=== PATIENT | male | born 1970 | race Caucasian/White ===

== ENCOUNTER 2017-03-05 18:25 | Inpatient (IN) | payer MEDICAID ==
[2017-03-05] MEDS ORDERED: IPRATROPIUM/ALBUTEROL 3 ML DEYVIAL ONE ×2 (18:52→18:53)
[2017-03-05 19:18] LABS: ALANINE AMINOTRANSFERASE 44 IU/L (21-72); ALBUMIN 3.6 g/dL (3.5-5.0); ALKALINE PHOSPHATASE 51 IU/L (38-126); ANION GAP 9 mEq/L (8-16); ASPARTATE AMINOTRANSFERASE 25 IU/L (17-59); BILIRUBIN,TOTAL 0.5 mg/dL (0.1-1.4); BILIRUBIN-CONJUGATED 0.3 mg/dL (0.0-0.5); BILIRUBIN-UNCONJUGATED 0.2 mg/dL (0.0-1.1); CALCIUM 9.1 mg/dL (8.5-10.4); CARBON DIOXIDE 36 mEq/l (22-31); CHLORIDE 97 mEq/L (97-110); CREATININE 0.9 mg/dL (0.7-1.3); GLOMERULAR FILTRATION RATE > 60; GLUCOSE 122 mg/dL (70-100); POTASSIUM 3.7 mEq/L (3.5-5.2); SODIUM 142 mEq/L (134-144); TOTAL PROTEIN 7.3 g/dL (6.3-8.2)
[2017-03-05 19:23] LABS: ADD DIFF? YES; ADD MORPH? NO; ADD SCAN? NO; ATYPICAL LYMPHOCYTE FLAG 10 (0-99); FRAGMENT RBC FLAG 0 (0-99); HEMATOCRIT 49.5 % (40.0-51.0); LEFT SHIFT FLG 30 (0-99); LIPEMIA HEMOLYSIS FLAG 80 (0-99); MEAN CELL HEMOGLOBIN 27.4 pg (27.9-34.1); MEAN CELL HEMOGLOBIN CONCENTR. 30.3 g/dL (32.4-36.7); MEAN CELL VOLUME 90.3 fL (81.5-99.8); MEAN PLATELET VOLUME 9.3 fL (8.7-11.7); PLATELET CLUMPS FLAG 0 (0-99); PLATELET COUNT 336 10^3/uL (150-400); RED BLOOD CELL COUNT 5.48 10^6/uL (4.40-6.38); RED CELL DISTRIBUTION WIDTH 15.1 % (11.5-15.2)
--- NOTE | 2017-03-05 19:28 | EDPHY ---
H & P Stated Complaint: pe/pna left hospital ama yesterday/didn't get home o2 or coumadin Time Seen by Provider: 03/05/17 18:45 HPI/ROS: Chief Complaint: Shortness of breath HPI: 46-year-old male who left his [facility] ([place], [place]) yesterday morning against medical advice for treatment for a possible PE versus pneumonia. Patient is normally on home oxygen and BiPAP. Patient has not had either of those since his discharge has had increasing shortness of breath since he left the hospital. He denies any fevers or chills but has had a lot of sweating. No chest pain. Has a history of a PE in the past was admitted for 2 months in 2016. Patient is also not been taking his anticoagulation. He went to get his Xarelto filled today but could not afford it. He is also not been using his home inhalers as he has not had these either. He states he with the hospital because he was concerned that they are not finding his per problem fast enough. Was supposed to have a CT scan there but was unable to lie flat. ROS: 10 point Review of Systems is negative except as noted in the HPI. PMH: PE, COPD, CHF, morbid obesity, benign prostate hypertrophy, hypothyroidism , HTN Medications: Combivent, carvedilol, melatonin, hydrochlorothiazide, levothyroxine, tamsulosin, amlodipine, albuterol Social History: No smoking, no alcohol, no recreational drug use Family History: non-contributory Physical Exam: Gen: Awake, Alert, moderate distress, morbidly obese HEENT: Nose: no rhinorrhea Eyes: PERRLA, EOMI Mouth: Moist mucosa Neck: Supple, no JVD Chest: nontender, very distant breath sounds with no focal rales or rhonchi appreciated Heart: S1, S2 normal, no murmur Abd: Soft, non-tender, no guarding Back: no CVA tenderness, no midline tenderness Ext: no edema, non-tender Skin: no rash Neuro: CN II-XII intact, Sensation grossly intact, Strength 5/5 in bilateral upper and lower extremities - Personal History Current Tetanus/Diphtheria Vaccine: Yes Tetanus Vaccine Date: april 2013 - Medical/Surgical History Hx Asthma: Yes Hx Chronic Respiratory Disease: Yes Hx Diabetes: No Hx Cardiac Disease: Yes Hx Renal Disease: No Hx Cirrhosis: No Hx Alcoholism: No Hx HIV/AIDS: No Hx Splenectomy or Spleen Trauma: No Other PMH: htn. hypothyroid. copd. cpap with o2 at night. Obesity - Social History Smoking Status: Never smoked Constitutional: Initial Vital Signs Temperature (C) 36.7 C 03/05/17 18:30 Heart Rate 113 H 03/05/17 18:30 Respiratory Rate 28 H 03/05/17 18:30 Blood Pressure 169/119 H 03/05/17 18:30 O2 Sat (%) 84 L 03/05/17 18:30 O2 Delivery Mode Oxymizer O2 (L/minute) 10 Allergies/Adverse Reactions: Penicillins Allergy (Verified 03/05/17 18:29) sulfamethoxazole Allergy (Verified 03/05/17 18:29) trimethoprim Allergy (Verified 03/05/17 18:29) Home Medications: Medication Instructions Recorded Gabapentin [Neurontin] 1,200 mg PO BID 09/01/13 Aspirin [Aspirin 325 mg (*)] 325 mg PO DAILY 04/09/16 Aspirin [Aspirin 325 mg (*)] 650 mg PO DAILY PRN 04/09/16 traMADol [Ultram 50 mg (*)] 100 mg PO Q6 PRN 04/09/16 Acetaminophen [Tylenol 325mg (*)] 650 mg PO Q4 PRN #0 tab 04/17/16 Albuterol [Proventil Inhaler HFA 2 puffs IH Q4 PRN #1 mdi 04/17/16 (*)] Beclomethasone Qvar 80 [Qvar 80 1 puffs IH BIDI #1 mdi 04/17/16 (*)] Ipratropium/Albuterol [Combivent 1 inh IH QID #1 mdi MDD 6 PUFFS 04/17/16 Respimat Inhal Gibbon(*)] DAILY Levothyroxine [Synthroid 125 mcg 125 mcg PO DAILY06 #10 tab 04/17/16 (*)] amLODIPine BESYLATE [Norvasc] 5 mg PO DAILY #30 tab 04/17/16 Coumadin 03/05/17 Medical Decision Making - Diagnostics EKG Interpretation: ECG time 6:55 p.m. sinus tachycardia with a rate of 100 normal axis, poor R- wave progression. No acute ST or T-wave changes. No significant change compared to an ECG from 04/11/2016 Imaging Results: Imaging Impressions Chest X-Ray 03/05/17 18:54 Impression: Findings most consistent with congestive heart failure are noted with associated basilar atelectasis. Imaging: I viewed and interpreted images myself ED Course/Re-evaluation: Checks x-ray does not show any gross large pneumonia. Consistent findings are consistent with CHF. Patient has very distant breath sounds has been improved with a continuous neb. Blood counts are pending. ECG is nonacute. I have discussed with Dr. Hans Angulo, hospitalist. He will admit to his service for further care. Patient's oxygen is in the 90s on face mask. He is tolerating a neb treatment EN is feeling better with improved air movement. - Data Points Laboratory Results: Laboratory Results 03/05/17 18:58 03/05/17 18:58 03/05/17 03/05/17 03/05/17 18:58 18:58 18:58 WBC 12.20 10^3/uL H 10^3/uL (3.80-9.50) RBC 5.48 10^6/uL 10^6/uL (4.40-6.38) Hgb 15.0 g/dL g/dL (13.7-17.5) Hct 49.5 % % (40.0-51.0) MCV 90.3 fL fL (81.5-99.8) MCH 27.4 pg L pg (27.9-34.1) MCHC 30.3 g/dL L g/dL (32.4-36.7) RDW 15.1 % % (11.5-15.2) Plt Count 336 10^3/uL 10^3/uL (150-400) MPV 9.3 fL fL (8.7-11.7) Neut % (Auto) Not Reported Lymph % (Auto) Not Reported [place] % (Auto) Not Reported Eos % (Auto) Not Reported Baso % (Auto) Not Reported Nucleat RBC Rel Count 0.0 % % (0.0-0.2) Absolute Neuts (auto) Not Reported Absolute Lymphs (auto) Not Reported Absolute Monos (auto) Not Reported Absolute Eos (auto) Not Reported Absolute Basos (auto) Not Reported Absolute Nucleated RBC 0.00 10^3/uL 10^3/uL (0-0.01) Immature Gran % Not Reported Immature Gran # Not Reported Platelet Estimate Pending Sodium 142 mEq/L mEq/L (134-144) Potassium 3.7 mEq/L mEq/L (3.5-5.2) Chloride 97 mEq/L mEq/L (97-110) Carbon Dioxide 36 mEq/l H mEq/l (22-31) Anion Gap 9 mEq/L mEq/L (8-16) BUN 28 mg/dL H mg/dL (7-23) Creatinine 0.9 mg/dL mg/dL (0.7-1.3) Estimated GFR > 60 Glucose 122 mg/dL H mg/dL (70-100) Calcium 9.1 mg/dL mg/dL (8.5-10.4) Total Bilirubin 0.5 mg/dL mg/dL (0.1-1.4) Conjugated Bilirubin 0.3 mg/dL mg/dL (0.0-0.5) Unconjugated Bilirubin 0.2 mg/dL mg/dL (0.0-1.1) AST 25 IU/L IU/L (17-59) ALT 44 IU/L IU/L (21-72) Alkaline Phosphatase 51 IU/L IU/L (38-126) Troponin I < 0.012 ng/mL ng/mL (0-0.034) NT-Pro-B Natriuret Pep 459 pg/mL H pg/mL (0-125) Total Protein 7.3 g/dL g/dL (6.3-8.2) Albumin 3.6 g/dL g/dL (3.5-5.0) Lipase 140.0 IU/L IU/L (23-300) Departure - Departure Disposition: [facility] Inpatient Acute Clinical Impression: Chronic obstructive pulmonary disease with acute exacerbation, CHF (congestive heart failure) Condition: Serious Referrals: Ivanna Wray PA [Primary Care Provider] - As per Instructions
[2017-03-05 19:29] LABS: TROPONIN I < 0.012 ng/mL (0-0.034)
--- NOTE | 2017-03-05 20:02 | CPEKG ---
Heart Rate: 100 RR Interval: 600 P-R Interval: 176 QRSD Interval: 74 QT Interval: 328 QTC Interval: 423 P [place]: 47 QRS [place]: 73 T Wave [place]: 43 EKG Severity - ABNORMAL ECG - EKG Impression: SINUS TACHYCARDIA EKG Impression: ABNRM R PROG, CONSIDER ASMI OR LEAD PLACEMENT EKG Impression: BORDERLINE T ABNORMALITIES, ANTERIOR LEADS Electronically Signed By: Harris Aguero 07-Mar-2017 10:18:15
[2017-03-05 20:12] LABS: PLATELET ESTIMATE ADEQUATE (ADEQ)
[2017-03-05] MEDS ORDERED: FUROSEMIDE 40 MG/4 ML VIAL IVP ONE (20:55)
[2017-03-05] MEDS ORDERED: ALBUTEROL 3 ML DEYVIAL IH PRN (20:57)
[2017-03-05] MEDS ORDERED: ACETAMINOPHEN 325 MG TAB PO PRN (20:57)
[2017-03-05] MEDS ORDERED: ONDANSETRON DISINTEGRATING 4 MG TAB PO PRN (20:57)
[2017-03-05] MEDS ORDERED: WARFARIN SODIUM 5 MG TAB PO SCH (21:00)
[2017-03-05 21:05] LABS: INR 1.06 (0.83-1.16); PROTIME(PATIENT) 13.7 SEC (12.0-15.0)
--- NOTE | 2017-03-05 21:51 | GHP ---
[f rep st] HISTORY AND PHYSICAL DATE OF ADMISSION: 03/05/2017 The patient is a pleasant 46-year-old gentleman with a history morbid obesity, pulmonary embolism, o besity hypoventilation syndrome and medical noncompliance secondary to homelessness, who presents wi th increasing dyspnea. It sounds like the patient was admitted recently to [facility] where he is being evaluated for pneumonia versus pulmonary embolism. He was discharged on Xa relto. He left against medical advice. He was given a prescription for Xarelto, which he could not fill, and he presents today with increasing breathlessness. He has not had a cough. He has noted lower extremity edema. He has lost weight over time. His last oxygen therapy was in August, as he has been largely homeless since. It sounds like his frequent hospitalizations have led to loss of jobs and homes and marriage. He has not had hemoptysis. He has not had fever or chills, has not had chest pain. When I see him, the patient is restless, but otherwise able to speak in sentences. He is wearing a BiPAP mask that he is able to take off. He has not had urinary urgency, frequency, dysuria. REVIEW OF SYSTEMS: Complete 10-point review of systems conducted, negative except as noted in the H PI. PAST MEDICAL HISTORY: 1. Morbid obesity. 2. Obesity hypoventilation syndrome with baseline bicarb of about 36. 3. History of pulmonary embolism with "coma at an outside hospital.". 4. History of renal failure requiring dialysis during a previous hospital stay here. Etiology of t his renal failure is not entirely clear. 5. Pulmonary hypertension with echo. Pulmonary pressure 53 on an echocardiogram here. 6. Chronic pain. 7. History of neurologic injury in the setting intubation including right hand, wrist drop, and bic eps injury. 8. COPD. 9. Bipolar. 10. History of appendectomy. ALLERGIES: Penicillin and Bactrim. MEDICATIONS: At home, Tylenol, albuterol, amlodipine, aspirin, QVAR, Coumadin, gabapentin, ipratrop ium, levothyroxine, tramadol. That list may change as it is reconciled. SOCIAL HISTORY: He is . Has smoked in the past, but not currently smoking. Rare alcohol. No street drugs other than some marijuana. FAMILY HISTORY: Reviewed and unremarkable. PHYSICAL EXAM: VITAL SIGNS: Temp 36.7, blood pressure 169/119, pulse 113, breathing 20 times a min inupiat, 84% on room air, 94 on 10 L. GENERAL: Increased work of breathing, plethoric, morbidly obese. HEENT: Sclerae anicteric. Oropharynx clear. Mucous membranes are moist. NECK: Supple without lymphadenopathy or JVD. LUNGS: Show very poor quality exam. HEART: S1, S2. Again, poor quality. ABDOMEN: Obese, soft, nontender, nondistended. LOWER EXTREMITIES: 2+ edema bilaterally. Chroni c venous stasis changes. SKIN: Without rash. NEUROLOGIC: Grossly nonfocal. LABORATORY DATA: White count 12.2, hematocrit 49.5, platelets are 336,000. INR is 1.2. Sodium 142 , potassium 3.7, chloride 97, bicarb 36, BUN 28, creatinine 0.9, glucose 122. LFTs normal. Troponi n less than 0.012. BNP is elevated at 459, prior value was 447. Chest x-ray, interpreted by me, sh ows cardiomegaly with likely left-sided congestive heart failure. EKG, interpreted by me, shows sin us tach 100 with rightward axis, normal intervals. I discussed the case with Dr. Salo Paz. records at this time. ASSESSMENT/PLAN: This is a 46-year-old gentleman with morbid obesity, obesity hypoventilation syndr ome, pulmonary embolism, who presents with breathlessness in the setting of no oxygen therapy. 1. Breathlessness, multifactorial of course, but I think that the predominant cause is likely progr essive hypoxia. Patient is currently on bilevel, which I think is reasonable. He will need supplem ental oxygen for the rest of his life or at least until he has significant weight loss. The patient warrants long-term anticoagulation given what sounds like a serious episode of pulmonary embolism a nd ongoing risk, so I think at this point in time I will further pulmonary embolism workup and begin therapeutic doses of Lovenox and warfarin at 10 mg. Warfarin is not an ideal therapy, but I do not see a source for 1 of the novel anticoagulants. 2. Congestive heart failure. The patient probably has right and left-sided heart failure. At this point in time, I will diurese him. I will give him a dose of Lasix now and start b.i.d. Diamox giv en his metabolic alkalosis. 3. I will check an echocardiogram to evaluate his pulmonary artery pressures. 4. Venous thromboembolism as above. Continue anticoagulation. 5. Metabolic alkalosis. This is secondary to chronic hypoventilation. Will diurese with Diamox. 6. Prophylaxis. He is therapeutically anticoagulated. DISPOSITION: Inpatient status to the PCU. /[id number]/MODL
[2017-03-05] MEDS: ENOXAPARIN 150 MG/ML SYR SC SCH (23:56)
[2017-03-06] MEDS ORDERED: traMADol 50 MG TAB PO PRN ×2 (00:16→11:41)
[2017-03-06] MEDS: acetaZOLAMIDE 500 MG in SYRINGE 0 ML IVP SCH ×3 (00:21→20:10)
[2017-03-06] MEDS: ALPRAZolam 1 MG TAB PO SCH ×2 (00:54→08:02)
[2017-03-06] MEDS: oxyCODONE IR 5 MG TAB PO PRN ×4 (00:54→20:07)
[2017-03-06] MEDS: ENOXAPARIN 150 MG/ML SYR SC SCH (08:02)
[2017-03-06 09:16] LABS: % IMMATURE GRANULYOCYTES 2.5 % (0.0-1.1); ABSOLUTE IMMATURE GRANULOCYTES 0.27 10^3/uL (0.00-0.10); ADD DIFF? NO; ADD MORPH? NO; ADD SCAN? NO; ATYPICAL LYMPHOCYTE FLAG 20 (0-99); FRAGMENT RBC FLAG 0 (0-99); HEMATOCRIT 47.7 % (40.0-51.0); HEMOGLOBIN 14.1 g/dL (13.7-17.5); LEFT SHIFT FLG 20 (0-99); LIPEMIA HEMOLYSIS FLAG 70 (0-99); MEAN CELL HEMOGLOBIN 27.3 pg (27.9-34.1); MEAN CELL HEMOGLOBIN CONCENTR. 29.6 g/dL (32.4-36.7); MEAN CELL VOLUME 92.3 fL (81.5-99.8); MEAN PLATELET VOLUME 9.4 fL (8.7-11.7); PLATELET CLUMPS FLAG 0 (0-99); PLATELET COUNT 272 10^3/uL (150-400); RED BLOOD CELL COUNT 5.17 10^6/uL (4.40-6.38); RED CELL DISTRIBUTION WIDTH 15.5 % (11.5-15.2)
[2017-03-06 09:25] LABS: INR 1.15 (0.83-1.16); PROTIME(PATIENT) 14.6 SEC (12.0-15.0)
[2017-03-06 09:46] LABS: ANION GAP 7 mEq/L (8-16); CALCIUM 8.7 mg/dL (8.5-10.4); CARBON DIOXIDE 37 mEq/l (22-31); CHLORIDE 96 mEq/L (97-110); CREATININE 0.8 mg/dL (0.7-1.3); GLOMERULAR FILTRATION RATE > 60; GLUCOSE 79 mg/dL (70-100); POTASSIUM 3.9 mEq/L (3.5-5.2); SODIUM 140 mEq/L (134-144)
[2017-03-06] MEDS ORDERED: PERFLUTREN LIPID MICROSPHERES 1.1 MG/ML VIAL IV ONE (11:30)
[2017-03-06] MEDS: IPRATROPIUM/ALBUTEROL 4GM MDI IH SCH ×3 (11:57→21:44)
[2017-03-06] MEDS: TAMSULOSIN HCL 0.4 MG CAP PO SCH (12:56)
--- NOTE | 2017-03-06 14:49 | HOSPPROG ---
Hospitalist Progress Note Assessment/Plan: Assessment: 46-year-old male presents with acute on chronic hypoxic respiratory failure in the setting of acute diastolic congestive heart failure exacerbation Plan: 1. Hypoxic respiratory failure. Acute on chronic, evidenced by SpO2 of 84% on room air with respiratory rate of 28 as well as symptomatic shortness of breath and breathlessness, resulting in labored breathing, secondary to acute CHF exacerbation as well as untreated obesity hypoventilation syndrome -continue BiPAP at bedtime, 5-6 L nasal cannula during the day -will most likely require supplemental oxygen at time of discharge -reviewed outside records including his discharge summary from 03/04/2017 from [facility], reporting that the patient decided to leave AMA and reported that he would use a tank of oxygen and BiPAP machine which a friend has , patient has since reported he has no access to these items as an outpatient 2. Diastolic congestive heart failure exacerbation. Acute, evidenced by BNP of 460, pulmonary edema on chest x-ray, history of diastolic dysfunction on echocardiogram from 2016, most likely untreated as an outpatient and exacerbated by untreated hypertension -status post IV Lasix on presentation, continue with IV Diamox given his metabolic alkalosis -continue to monitor strict I&Os, daily weights 3. History of pulmonary embolism. Review of outside records confirm that the patient had a pulmonary embolism in August or September of 2016, was placed on Coumadin thereafter, had challenges with adherence, was placed on Xarelto as most recent hospitalization at [facility] -patient has been nonadherent to Xarelto secondary to poor medication education -will continue Xarelto at this time and work on prior authorization -patient recently had lower extremity ultrasounds which demonstrated no evidence of active DVT 4. Obesity hypoventilation syndrome. Chronic, resulting in chronic hypercapnia , requires BiPAP at night 5. Morbid obesity. BMI 51, increase patient's risk of morbidity and mortality, patient was counseled regarding weight loss today and was advised that bariatric surgery would be an option if he is able to demonstrate adherence in the outpatient setting 6. Atelectasis. Secondary to compression from CHF, add incentive spirometer Diet. Regular Prophylaxis. High risk patient, currently on Xarelto Code. Full Disposition. Anticipated discharge is uncertain this time, patient remains hypervolemic requiring IV diuretics. Subjective: Patient was extensively counseled regarding the indications for bariatric surgery, the need for outpatient adherence, his oral anticoagulation options Objective: Vital Signs Temp Pulse Resp BP Pulse Ox 36.4 C 104 H 22 H 157/102 H 93 03/06/17 14:00 03/06/17 14:00 03/06/17 14:00 03/06/17 14:00 03/06/17 14:00 Laboratory Results 03/06/17 08:34 03/06/17 08:34 03/05/17 03/06/17 03/07/17 05:59 05:59 05:59 Intake Total 800 Output Total 600 1650 Balance 200 -1650 PT 14.6 SEC (12.0-15.0) 03/06/17 08:34 INR 1.15 (0.83-1.16) 03/06/17 08:34 - Time Spent With Patient Time Spent with Patient: greater than 35 minutes Time Spent with Patient: Greater than 35 minutes spent on this patients care, greater than 50% of time spent counseling, educating, and coordinating care regarding the above mentioned plan. - Physical Exam Constitutional: not in pain, chronically ill appearing, obese, No uncomfortable Cardiovascular: regular rate and rhythym, systolic murmur (206 sternal), edema ( 1+ bilateral lower extremity), No tachycardia Respiratory: inspiratory crackles (Bilateral bases), No expiratory wheeze, No bronchial breath sounds Gastrointestinal: normoactive bowel sounds, soft, non-tender abdomen, no palpable masses Neurologic: AAOx3 Psychiatric: interacting appropriately, not anxious, not encephalopathic, thought process linear ICD10 Worksheet Patient Problems: Problems Problem Status Onset CHF (congestive heart failure) Acute Chronic obstructive pulmonary disease with acute exacerbation Acute Chronic obstructive pulmonary disease with acute exacerbation Acute Palliative care encounter Acute Polycythemia Acute Right-sided heart failure Acute
[2017-03-06] MEDS ORDERED: NON-FORMULARY NEW DRUG (Gabapentin [Neurontin] 1,200 MG) PO SCH (16:00)
[2017-03-06] MEDS: GABAPENTIN 400 MG CAP PO SCH ×2 (16:10→20:08)
[2017-03-06] MEDS: RIVAROXABAN 15 MG TAB PO SCH (17:53)
[2017-03-06] MEDS: CARVEDILOL 6.25 MG TAB PO SCH (17:53)
[2017-03-06] MEDS: ALPRAZolam 1 MG TAB PO PRN (20:07)
[2017-03-07] MEDS: oxyCODONE IR 5 MG TAB PO PRN ×2 (03:37→15:25)
[2017-03-07] MEDS: IPRATROPIUM/ALBUTEROL 4GM MDI IH SCH ×2 (06:03→10:52)
[2017-03-07] MEDS: CARVEDILOL 6.25 MG TAB PO SCH ×2 (07:22→17:35)
[2017-03-07] MEDS: RIVAROXABAN 15 MG TAB PO SCH ×2 (07:24→17:35)
[2017-03-07] MEDS: LEVOTHYROXINE 125 MCG TAB PO SCH (07:24)
[2017-03-07 07:47] LABS: % IMMATURE GRANULYOCYTES 1.4 % (0.0-1.1); ABSOLUTE IMMATURE GRANULOCYTES 0.17 10^3/uL (0.00-0.10); ADD DIFF? NO; ADD MORPH? YES; ADD SCAN? NO; ATYPICAL LYMPHOCYTE FLAG 0 (0-99); FRAGMENT RBC FLAG 0 (0-99); HEMATOCRIT 50.3 % (40.0-51.0); HEMOGLOBIN 14.5 g/dL (13.7-17.5); LEFT SHIFT FLG 10 (0-99); LIPEMIA HEMOLYSIS FLAG 70 (0-99); MEAN CELL HEMOGLOBIN 26.8 pg (27.9-34.1); MEAN CELL VOLUME 92.8 fL (81.5-99.8); PLATELET CLUMPS FLAG 0 (0-99); PLATELET COUNT 268 10^3/uL (150-400); RED BLOOD CELL COUNT 5.42 10^6/uL (4.40-6.38); RED CELL DISTRIBUTION WIDTH 15.3 % (11.5-15.2)
[2017-03-07 07:49] LABS: MEAN CELL HEMOGLOBIN CONCENTR. 28.8 g/dL (32.4-36.7)
[2017-03-07 07:58] LABS: INR 1.44 (0.83-1.16); PROTIME(PATIENT) 17.5 SEC (12.0-15.0)
[2017-03-07 08:11] LABS: ANION GAP 5 mEq/L (8-16); CALCIUM 9.2 mg/dL (8.5-10.4); CARBON DIOXIDE 36 mEq/l (22-31); CHLORIDE 96 mEq/L (97-110); CREATININE 0.8 mg/dL (0.7-1.3); GLOMERULAR FILTRATION RATE > 60; GLUCOSE 84 mg/dL (70-100); SODIUM 137 mEq/L (134-144)
[2017-03-07 09:01] LABS: HYPOCHROMIA 1+; PLATELET ESTIMATE ADEQUATE (ADEQ); STOMATOCYTES 1+
[2017-03-07] MEDS: ONDANSETRON 4 MG/2 ML VIAL IVP PRN ×2 (09:03→17:36)
[2017-03-07] MEDS: acetaZOLAMIDE 500 MG in SYRINGE 0 ML IVP SCH ×2 (09:13→20:46)
[2017-03-07] MEDS: TAMSULOSIN HCL 0.4 MG CAP PO SCH (09:54)
[2017-03-07] MEDS: GABAPENTIN 400 MG CAP PO SCH ×3 (09:54→20:40)
[2017-03-07 10:51] LABS: BASE EXCESS 3.3 mEq/L (-2.5-2.5); BICARBONATE 36 mEq/L (22-26); MEASURED OXYGEN SATURATION 89 % (92-95); PO2 65 mmHg (65-75); TCO2 39 mEq/L (23-27)
[2017-03-07 10:53] LABS: PCO2 100 mmHg (34-38)
[2017-03-07] MEDS: IPRATROPIUM/ALBUTEROL 3 ML DEYVIAL IH SCH ×3 (11:13→22:45)
[2017-03-07] MEDS: methylPREDNISolone SOD SUCC 40 MG/ML VIAL IVP SCH ×3 (11:34→20:40)
[2017-03-07 14:51] LABS: CALCULATED OXYGEN SATURATION 92 % (92-95)
--- NOTE | 2017-03-07 15:25 | HOSPPROG ---
Hospitalist Progress Note Assessment/Plan: Assessment: 46-year-old male presents with acute on chronic hypoxic and hypercapnic respiratory failure in the setting of acute diastolic congestive heart failure exacerbation Plan: 1. Hypoxic and hypercapnic respiratory failure. Acute worsening this AM, new prob, further w/u, w/ somnolence, pCO2 100 w/ pH 7.1, likely 2/2 poor fitting BiPAP o/n, poor lung exam and unable to ascertain whether there are obstructive breath sounds -continue BiPAP -start methylpred 80 q8, duonebs -repeat ABG this afternoon and tomorrow AM 2. Diastolic congestive heart failure exacerbation. Acute, most likely untreated as an outpatient and exacerbated by untreated hypertension -CXR w/ interstitial edema (personally interpreted) -continue with IV Diamox given his metabolic alkalosis -net neg 1.4L o/n 3. History of pulmonary embolism. Review of outside records confirm that the patient had a pulmonary embolism in August or September of 2016, was placed on Coumadin thereafter, had challenges with adherence, was placed on Xarelto as most recent hospitalization at [facility] -patient has been nonadherent to Xarelto secondary to poor medication education -will continue Xarelto at this time and work on prior authorization -patient recently had lower extremity ultrasounds which demonstrated no evidence of active DVT 4. Obesity hypoventilation syndrome. Chronic, resulting in chronic hypercapnia , requires BiPAP at night 5. Morbid obesity. BMI 51, increase patient's risk of morbidity and mortality, patient was counseled regarding weight loss today and was advised that bariatric surgery would be an option if he is able to demonstrate adherence in the outpatient setting 6. Atelectasis. Secondary to compression from CHF, added incentive spirometer 7. Acute encephalopathy. Evidenced by global brain dysfunction characterized as somnolence, impaired ability to verbally communicate, reduced level of responsiveness, acute change from day prior, 2/2 metabolic effects of hypercapnia -cont on BiPAP, monitor mental status Diet. Regular Prophylaxis. High risk patient, currently on Xarelto Code. Full Disposition. Anticipated discharge is uncertain this time, patient remains hypervolemic requiring IV diuretics, worsening resp status. High Complexity patient, high risk of morbidity and/or mortality secondary to the issues as outlined above. Subjective: Patient more somnolent this morning, not following commands, did not keep his BiPAP mask on all night Objective: Vital Signs Temp Pulse Resp BP Pulse Ox 36.5 C 80 14 117/66 90 L 03/07/17 04:37 03/07/17 09:05 03/07/17 09:05 03/07/17 09:05 03/07/17 09:05 Laboratory Results 03/07/17 07:32 03/07/17 07:32 03/06/17 03/07/17 03/08/17 05:59 05:59 05:59 Intake Total 800 2900 Output Total 600 4300 1200 Balance 200 -1400 -1200 PT 17.5 SEC (12.0-15.0) H 03/07/17 07:32 INR 1.44 (0.83-1.16) H 03/07/17 07:32 - Physical Exam Constitutional: not in pain, chronically ill appearing, obese, No uncomfortable Cardiovascular: regular rate and rhythym, no murmur, rub, or gallop, edema (1+ bilateral lower extremity), No irregularly irregular Respiratory: other (Poor inspiratory and expiratory effort, unable to appreciate wheezes or crackles, patient is visibly tachypneic), No dullness to percussion Gastrointestinal: normoactive bowel sounds, soft, non-tender abdomen, no palpable masses Neurologic: other (Patient able to follow some 1 step commands but he does not verbally respond to questions, does not voluntarily open his eyes, does not interact further, he does have motor strength in his bilateral hands equally) Psychiatric: not anxious, encephalopathic, poor insight, poor judgement, No agitated ICD10 Worksheet Patient Problems: Problems Problem Status Onset CHF (congestive heart failure) Acute Chronic obstructive pulmonary disease with acute exacerbation Acute Polycythemia Acute Right-sided heart failure Acute Palliative care encounter Acute Chronic obstructive pulmonary disease with acute exacerbation Acute
[2017-03-08] MEDS: ALPRAZolam 1 MG TAB PO PRN (03:12)
[2017-03-08] MEDS: oxyCODONE IR 5 MG TAB PO PRN (03:12)
[2017-03-08] MEDS: IPRATROPIUM/ALBUTEROL 3 ML DEYVIAL IH SCH (06:19)
[2017-03-08 06:36] LABS: BASE EXCESS 0.6 mEq/L (-2.5-2.5); BICARBONATE 37 mEq/L (22-26); MEASURED OXYGEN SATURATION 96 % (92-95); PO2 98 mmHg (65-75)
[2017-03-08 06:41] LABS: BIPAP YES; O2 CONCENTRATIION 60 % (0-100); P/F RATIO 163 RATIO; PCO2 > 125 mmHg (34-38); TCO2 42 mEq/L (23-27)
[2017-03-08 06:42] LABS: EXP PRESSURE 5; INSP PRESSURE 18
[2017-03-08] MEDS: LEVOTHYROXINE 125 MCG TAB PO SCH (06:44)
[2017-03-08] MEDS: methylPREDNISolone SOD SUCC 40 MG/ML VIAL IVP SCH ×3 (06:44→21:20)
[2017-03-08 06:47] LABS: ABSOLUTE IMMATURE GRANULOCYTES 0.29 10^3/uL (0.00-0.10); ADD DIFF? NO; ADD MORPH? YES; ADD SCAN? NO; ATYPICAL LYMPHOCYTE FLAG 0 (0-99); FRAGMENT RBC FLAG 0 (0-99); HEMATOCRIT 50.4 % (40.0-51.0); HEMOGLOBIN 14.3 g/dL (13.7-17.5); LEFT SHIFT FLG 10 (0-99); LIPEMIA HEMOLYSIS FLAG 70 (0-99); MEAN CELL HEMOGLOBIN 27.6 pg (27.9-34.1); MEAN CELL VOLUME 97.1 fL (81.5-99.8); MEAN PLATELET VOLUME 9.2 fL (8.7-11.7); PLATELET CLUMPS FLAG 0 (0-99); PLATELET COUNT 253 10^3/uL (150-400); RED BLOOD CELL COUNT 5.19 10^6/uL (4.40-6.38); RED CELL DISTRIBUTION WIDTH 14.6 % (11.5-15.2)
[2017-03-08 06:51] LABS: INR 1.76 (0.83-1.16); PROTIME(PATIENT) 20.6 SEC (12.0-15.0)
[2017-03-08 06:55] LABS: MEAN CELL HEMOGLOBIN CONCENTR. 28.4 g/dL (32.4-36.7)
[2017-03-08 07:12] LABS: ANION GAP 6 mEq/L (8-16); CALCIUM 9.4 mg/dL (8.5-10.4); CARBON DIOXIDE 33 mEq/l (22-31); CHLORIDE 94 mEq/L (97-110); CREATININE 0.8 mg/dL (0.7-1.3); GLOMERULAR FILTRATION RATE > 60; GLUCOSE 168 mg/dL (70-100); POTASSIUM 5.8 mEq/L (3.5-5.2); SODIUM 133 mEq/L (134-144); SPECIMEN HEMOLYSIS 103
[2017-03-08 07:52] LABS: MACROCYTES 1+; PLATELET ESTIMATE ADEQUATE (ADEQ); POLYCHROMASIA 1+
[2017-03-08] MEDS: PROPOFOL/EMULSION 100 ML IV SCH ×5 (08:00→21:48)
--- NOTE | 2017-03-08 08:12 | HOSPPROG ---
Hospitalist Progress Note Assessment/Plan: CROSS COVERAGE EVENT NOTE RN paged regarding abnormal ABG results, 7.08/>125/98/42/96, on BIPAP of FiO2 at 60%, 18/5. On my assessment, patient was unarousable/obtunded. Given these findings, arrangements were made to transfer the patient to the ICU for emergent intubation. In the meantime, IP/EP were adjusted to 20/5. Newspaper Stuffer was informed of events and is planning for likely intubation. Shannon Gilmore DO Objective: Vital Signs Temp Pulse Resp BP Pulse Ox 36.9 C 104 H 14 131/83 H 94 03/07/17 19:51 03/08/17 06:19 03/08/17 06:19 03/07/17 23:14 03/08/17 06:19 Laboratory Results 03/08/17 06:36 03/08/17 06:36 03/07/17 03/08/17 03/09/17 05:59 05:59 05:59 Intake Total 2900 600 Output Total 4300 4350 Balance -1400 -3750 PT 20.6 SEC (12.0-15.0) H 03/08/17 06:36 INR 1.76 (0.83-1.16) H 03/08/17 06:36 ICD10 Worksheet Patient Problems: Problems Problem Status Onset CHF (congestive heart failure) Acute Chronic obstructive pulmonary disease with acute exacerbation Acute Polycythemia Acute Right-sided heart failure Acute Palliative care encounter Acute Chronic obstructive pulmonary disease with acute exacerbation Acute
[2017-03-08] MEDS ORDERED: PROPOFOL/EMULSION 1,000 MG/100 ML BOTTLE IV ONE (08:15)
[2017-03-08] MEDS: GABAPENTIN 400 MG CAP PO SCH ×3 (09:18→21:19)
[2017-03-08] MEDS: acetaZOLAMIDE 500 MG in SYRINGE 0 ML IVP SCH (09:18)
[2017-03-08] MEDS: medroxyPROGESTERone 10 MG TAB PO SCH ×3 (09:18→21:19)
[2017-03-08] MEDS: CARVEDILOL 6.25 MG TAB PO SCH ×2 (09:18→17:25)
[2017-03-08] MEDS: RIVAROXABAN 15 MG TAB PO SCH (09:19)
[2017-03-08] MEDS: TAMSULOSIN HCL 0.4 MG CAP PO SCH (09:19)
[2017-03-08 09:44] LABS: BASE EXCESS 5.9 mEq/L (-2.5-2.5); BICARBONATE 32 mEq/L (22-26); MEASURED OXYGEN SATURATION 100 % (92-95); PCO2 53 mmHg (34-38); PO2 177 mmHg (65-75); TCO2 34 mEq/L (23-27)
[2017-03-08 09:45] LABS: ASSIST CONTROL YES; END TIDAL CO2 48; O2 CONCENTRATIION 100 % (0-100); P/F RATIO 177 RATIO
[2017-03-08 09:46] LABS: TOTAL RATE 25
[2017-03-08] MEDS: FAMOTIDINE 20 MG/NACL 50 ML IV SCH ×2 (10:21→20:25)
[2017-03-08] MEDS: ENOXAPARIN 150 MG/ML SYR SC SCH ×2 (10:33→20:24)
[2017-03-08 13:04] LABS: ANION GAP 5 mEq/L (8-16); CALCIUM 9.3 mg/dL (8.5-10.4); CARBON DIOXIDE 33 mEq/l (22-31); CHLORIDE 93 mEq/L (97-110); CREATININE 0.9 mg/dL (0.7-1.3); GLOMERULAR FILTRATION RATE > 60; GLUCOSE 110 mg/dL (70-100); POTASSIUM 5.8 mEq/L (3.5-5.2); SODIUM 131 mEq/L (134-144); SPECIMEN HEMOLYSIS 147
[2017-03-08] MEDS: ALBUTEROL 200 PUFFS/18 GM MDI IH SCH ×4 (14:00→23:42)
[2017-03-08] MEDS: CHLORHEXIDINE GLUCONATE 15 ML UDL PO SCH ×2 (14:17→20:24)
--- NOTE | 2017-03-08 14:19 | HOSPPROG ---
Hospitalist Progress Note Assessment/Plan: Assessment: 46-year-old male presents with acute on chronic hypoxic and hypercapnic respiratory failure in the setting of acute diastolic congestive heart failure exacerbation Plan: 1. Hypoxic and hypercapnic respiratory failure. Acute worsening this AM 2/2 BiPAP non-adherence overnight, somnolence, pCO2 >125 w/ pH 7.05 -d/w Dr. Abreu, intubated this AM w/o incident -cont on empiric methylpred 80 q8, duonebs given inability to gauge air movement on lung exam -repeat ABG w/ significant improvement on ventilator, continue vent and serial ABGs to ensure stability 2. Diastolic congestive heart failure exacerbation. Acute, most likely untreated as an outpatient and exacerbated by untreated hypertension -initial CXR w/ interstitial edema and LE edema -continue with IV Diamox given his metabolic alkalosis -net neg 3.7L o/n, neg 2kg LOS 3. History of pulmonary embolism. Patient had a pulmonary embolism in August or September of 2016, was placed on Coumadin thereafter, had challenges with adherence, was placed on Xarelto at most recent hospitalization at [facility], did not receive prior auth for Medicaid so he could not afford -patient has been nonadherent to Xarelto secondary to poor medication education -will continue Xarelto at this time and work on prior authorization (will request prior auth for Medicaid today) -patient recently had lower extremity ultrasounds which demonstrated no evidence of active DVT -while he is on vent, will use lovenox 150 bid 4. Obesity hypoventilation syndrome. Chronic, resulting in chronic hypercapnia , requires BiPAP at night as outpt 5. Morbid obesity. BMI 51, increase patient's risk of morbidity and mortality, patient was counseled regarding weight loss and was advised that bariatric surgery would be an option if he is able to demonstrate adherence in the outpatient setting 6. Atelectasis. Secondary to compression from CHF 7. Acute encephalopathy. Evidenced by global brain dysfunction characterized as somnolence, impaired ability to verbally communicate, reduced level of responsiveness, acute worsening this AM 2/2 metabolic effects of hypercapnia -currently sedated on propofol Diet. Regular Prophylaxis. High risk patient, currently on Xarelto Code. Full Disposition. Anticipated discharge is uncertain this time, patient remains hypervolemic requiring IV diuretics, worsening resp status. 35 minutes of critical care time spent at bedside w/ patient, addressing above, drawing ABG w/ doppler, patient remains critically ill. Subjective: Patient arousable this morning, mental status worsening, did not adhere to his BiPAP over night, was intubated this morning Objective: Vital Signs Temp Pulse Resp BP Pulse Ox 37.2 C 74 15 93/64 L 92 03/08/17 13:00 03/08/17 13:00 03/08/17 13:00 03/08/17 13:00 03/08/17 13:00 Laboratory Results 03/08/17 06:36 03/08/17 12:25 03/07/17 03/08/17 03/09/17 05:59 05:59 05:59 Intake Total 2900 600 Output Total 4300 4350 Balance -1400 -3750 PT 20.6 SEC (12.0-15.0) H 03/08/17 06:36 INR 1.76 (0.83-1.16) H 03/08/17 06:36 - Physical Exam Constitutional: not in pain, chronically ill appearing, obese Eyes: other (Pupils central, fixed, not dilated) Cardiovascular: edema (2+ bilateral lower extremity edema), other (Distant), No systolic murmur, No tachycardia Respiratory: other (Distant breath sounds), No expiratory wheeze, No inspiratory crackles, No bronchial breath sounds Neurologic: other (Intubated and sedated, spontaneously moving upper extremities bilaterally) ICD10 Worksheet Patient Problems: Problems Problem Status Onset CHF (congestive heart failure) Acute Chronic obstructive pulmonary disease with acute exacerbation Acute Polycythemia Acute Right-sided heart failure Acute Palliative care encounter Acute Chronic obstructive pulmonary disease with acute exacerbation Acute
[2017-03-08 14:25] LABS: BASE EXCESS 4.9 mEq/L (-2.5-2.5); BICARBONATE 31 mEq/L (22-26); MEASURED OXYGEN SATURATION 86 % (92-95); PCO2 56 mmHg (34-38); PO2 48 mmHg (65-75); TCO2 33 mEq/L (23-27)
[2017-03-08 14:27] LABS: ASSIST CONTROL YES
[2017-03-08 14:28] LABS: O2 CONCENTRATIION 50 % (0-100); P/F RATIO 96 RATIO
[2017-03-08] MEDS ORDERED: FUROSEMIDE 20 MG/2 ML VIAL IVP ONE (15:02)
[2017-03-08] MEDS ORDERED: ALTEPLASE 2 MG VIAL IVP PRN (15:03)
[2017-03-08] MEDS ORDERED: MIDAZOLAM 2 MG/2 ML VIAL ONE (15:28)
[2017-03-08] MEDS ORDERED: ETOMIDATE 20 MG/10 ML VIAL IV ONE (15:30)
[2017-03-08] MEDS ORDERED: MIDAZOLAM 2 MG/2 ML VIAL IVP ONE (15:30)
--- NOTE | 2017-03-08 16:40 | GCON ---
[f rep st] CONSULTATION PULMONARY CONSULTATION DATE OF CONSULTATION: 03/08/2017 HISTORY: The patient is a 46-year-old male with a long-standing history of morbid obesity, sleep ap jaleel, obesity hypoventilation syndrome and medical noncompliance, presumably related to his chronic h omelessness and potentially underlying bipolar disorder. He has been admitted to the hospital appar ently many times with acute on chronic respiratory failure and left hospitalizations against medical advice on multiple occasions in the past. He was recently at [facility] where he was being ev aluated for pneumonia. A CT angiogram was performed there which was nondiagnostic due to poor dye b olus. In any case, he was discharged on Xarelto but apparently was unable to fill this because he w as unable to get Medicare clearance for this. In any case, he was admitted on 03/05 with shortness of breath and hypoxia and was placed on BiPAP initially. He was observed overnight, was treated wit h diuretics including Diamox and this morning's blood gas showed a pH of 7.0, with a pCO2 of greater than 125 with concomitant somnolence. He was subsequently brought to the intensive care unit where he was intubated and this is documented separately. REVIEW OF SYSTEMS: Reading through the hospital chart, a review of systems is otherwise negative. PAST MEDICAL HISTORY: Includes: 1. Obstructive sleep apnea with obesity hypoventilation syndrome. The baseline bicarb is reported to be about 36. 2. He has a history of pulmonary embolism which is potentially in August or September, and he has h ad difficulty complying with anticoagulation. 3. He also has a history of acute kidney injury requiring dialysis at previous hospital stays. 4. Pulmonary hypertension on echocardiogram with a pressure of 53. 5. Chronic pain. 6. Neurologic injury with wrist drop. 7. COPD. 8. Bipolar. PAST SURGICAL HISTORY: Include appendectomy. SOCIAL HISTORY: He is a former smoker but not recently. Rare alcohol and does use marijuana but no other recreational drugs. FAMILY HISTORY: Noncontributory at this time. MEDICATIONS: Currently include Tylenol, acetazolamide, Proventil, Xanax, carvedilol, Lovenox, Pepci d, Neurontin, Synthroid, Solu-Medrol, Zofran, oxycodone, Flomax, Ultram. PHYSICAL EXAMINATION: VITAL SIGNS: This morning, he was afebrile with a blood pressure of 107/54, heart rate 93, respiratory rate 22, oxygen saturation was 91% on 10 L face mask. GENERAL: He was m orbidly obese male who was talkative. He did answer some questions. He knew he was in a hospital b ut was not sure about [facility]. Was fairly somnolent. HEENT: His pupils were equally rou nd and reactive to light, nonicteric and noninjected. Mucous membranes were moist without erythema or exudate. NECK: Supple, without adenopathy. No obvious jugular vein distention though it was di fficult given his body habitus. RESPIRATORY: Breath sounds were clear to auscultation without whee zing. No rales or rubs. HEART: Rate had a regular rate and rhythm without obvious murmurs. ABDOM EN: Quite obese but otherwise soft and nontender with hypoactive bowel tones. EXTREMITIES: Show 1 + edema bilaterally. NEUROLOGIC: Nonfocal, save for his global somnolence. SKIN: Otherwise warm and dry without evidence of rash. OBJECTIVE DATA: Includes a white count of 14.3 today; this was 11.9 yesterday. Hematocrit of 50 pineda ggesting chronic hypoxemia, platelets of 253. His blood gas from this morning showed a pH 7.05, CO2 of greater than 125, PO2 98, bicarb 42. Oxygen saturation 96%. His sodium was this morning 133, p otassium 5.8, chloride 94, bicarb 37, anion gap 6, BUN 20, creatinine 0.8. A repeat potassium at no on after intubation was 5.8, still. My chest x-ray showed no edema with good placement of his ET tube. ASSESSMENT/PLAN: 1. Acute on chronic respiratory failure. This is presumably due to noncompliance with BiPAP as wel l as oxygen. His homelessness is certainly a major barrier and I think that, given what is reported to me about his frequent in and out of hospitals due to his underlying bipolar disorder or inabilit y to get oxygen or other equipment at home, it is an issue that should likely be more carefully solv ed prior to discharge. In the short term, the intubation will certainly fix it and I would target a pCO2 of probably about 60 and monitor his bicarb as well through serial blood gases. In the meanti me, Provera may provide a respiratory stimulant if we use that 3 times a day, though I do that with some hesitancy given his venous thromboembolic history. In either case, if he is taking Xarelto shilo t should not be an issue in the future and may help prevent more respiratory acidosis from happening . Certainly compliance with BiPAP at home and oxygen would be a substantial improvement as well. I would avoid acetazolamide in patients with chronic respiratory failure since it causes a bicarbonat uria which may be detrimental in a respiratory acidosis. 2. Chronic obstructive pulmonary disease by history. I do not see any pulmonary function tests on him. It is quite reasonable to treat him in the short term with some steroids though his wheezing m ay be more related to transient pulmonary edema which is frequently seen in patients with sleep apne a as they get a postobstructive pulmonary edema. In any case, we will leave the steroids and nebuli zers for now since he is on a ventilator. Eventually, it would be good to get some pulmonary functi on tests to better understand his underlying physiology. 3. History of pulmonary embolism. His study in [place] was nondiagnostic due to an inadequate shi us. He apparently had clot documented back in August or September so this seems to be appropriate b ut before we discharge him, we should be certain that he has at least access to his Xarelto. 4. His leukocytosis is likely related to his steroids. I see no evidence of an obvious infection r ight now and I will simply follow this for now. 5. Potassium 5.8, that did not improve with improvement in his pH as I suspected it would initially . He is going to get Lasix now and hopefully that should catch up to that. We will recheck a potas sium a little bit later on today and follow up with an EKG to make sure this does not get any critic ally higher than that. A total of about 60 minutes of critical care time separate from procedures w as required for this patient who is in imminent danger of serious deterioration and required aggress keely care. /[id number]/MODL
--- NOTE | 2017-03-08 19:00 | GPN ---
[f rep st] PROCEDURE NOTE DATE OF PROCEDURE: 03/08/2017 PROCEDURE: Endotracheal intubation. CONSENT: Waved due to the emergent nature of the procedure. SEDATION: Conscious sedation was achieved using a total of 1 mg IV Versed, 40 mg of IV etomidate. The patient tolerated these well without hemodynamic compromise. DESCRIPTION OF PROCEDURE: Using a MAC 4 laryngoscope, an 8.0 endotracheal tube was easily passed th rough well visualized vocal cords. There were no significant secretions. Vocal cords appeared to b e moving normally. Tube placement was confirmed with tube condensation, appropriate color change on capnography and bilateral breath sounds with the absence of sounds over his stomach. His oxygen sa turation was 100% at the end of the procedure and a postprocedure chest x-ray confirmed adequate augustin cement of the tube. /[id number]/MODL
[2017-03-08 20:41] LABS: POTASSIUM 4.6 mEq/L (3.5-5.2)
[2017-03-09] MEDS: PROPOFOL/EMULSION 100 ML IV SCH ×4 (00:29→09:20)
[2017-03-09] MEDS: ALBUTEROL 200 PUFFS/18 GM MDI IH SCH ×5 (04:05→20:39)
[2017-03-09 05:25] LABS: ASSIST CONTROL YES; BASE EXCESS 4.2 mEq/L (-2.5-2.5); BICARBONATE 31 mEq/L (22-26); END TIDAL CO2 57; MEASURED OXYGEN SATURATION 97 % (92-95); O2 CONCENTRATIION 70 % (0-100); P/F RATIO 127 RATIO; PCO2 56 mmHg (34-38); PO2 89 mmHg (65-75); TCO2 32 mEq/L (23-27); TOTAL RATE 16
[2017-03-09] MEDS: methylPREDNISolone SOD SUCC 40 MG/ML VIAL IVP SCH (05:33)
[2017-03-09] MEDS: LEVOTHYROXINE 125 MCG TAB PO SCH (05:33)
[2017-03-09 05:55] LABS: ANION GAP 6 mEq/L (8-16); CARBON DIOXIDE 33 mEq/l (22-31); CHLORIDE 96 mEq/L (97-110); CREATININE 0.9 mg/dL (0.7-1.3); GLOMERULAR FILTRATION RATE > 60; GLUCOSE 125 mg/dL (70-100); POTASSIUM 4.3 mEq/L (3.5-5.2); SODIUM 135 mEq/L (134-144)
[2017-03-09] MEDS: FAMOTIDINE 20 MG/NACL 50 ML IV SCH ×2 (09:17→21:04)
[2017-03-09] MEDS: CHLORHEXIDINE GLUCONATE 15 ML UDL PO SCH ×2 (09:18→21:04)
[2017-03-09] MEDS: CARVEDILOL 6.25 MG TAB PO SCH ×2 (09:18→18:14)
[2017-03-09] MEDS: GABAPENTIN 400 MG CAP PO SCH ×3 (09:19→21:03)
[2017-03-09] MEDS: medroxyPROGESTERone 10 MG TAB PO SCH ×3 (09:19→21:03)
[2017-03-09] MEDS: ENOXAPARIN 150 MG/ML SYR SC SCH ×2 (09:19→21:04)
[2017-03-09] MEDS: oxyCODONE IR 5 MG TAB PO PRN ×2 (09:20→21:11)
[2017-03-09] MEDS: TAMSULOSIN HCL 0.4 MG CAP PO SCH ×2 (09:20→09:36)
[2017-03-09] MEDS ORDERED: FUROSEMIDE 40 MG TAB PO SCH (10:00)
[2017-03-09] MEDS: ALPRAZolam 0.5 MG TAB PO PRN ×2 (10:31→21:11)
[2017-03-09] MEDS: DEXMEDETOMIDINE HCL 400 MCG in NS 100 ML IV SCH ×3 (10:32→17:41)
[2017-03-09] MEDS: LISINOPRIL 40 MG TAB PO SCH (10:56)
[2017-03-09] MEDS: HYDROCHLOROTHIAZIDE 25 MG TAB PO SCH (10:56)
--- NOTE | 2017-03-09 13:37 | PDINTPN ---
Executive Team Leader Progress Note Assessment/Plan: Assessment/plan: 46 morbidly obese M with recurrent hospital admissions for acute on chronic respiratory failure. He was recently admitted to [place] with similar issues but left AMA without oxygen or CPAP or Xarelto which he had been taking for a PE diagnosed in or 09/2016. He was re-admitted at [facility] with dyspnea and hypoxemia, but remained non-compliant with bipap until his AM ABG showed a pH of 7.0 and pCO2 of >125 coupled with hypersomnolence. He was emergently intubated and started on provera for respiratory stimulation. * Acute on chronic respiratory failure 2/2 AYLIN/OHS coupled with severe non- compliance. He has improved greatly on the ventilator and will likely extubate today. The challenge will be finding a regimen that he will comply with to avoid his frequent hospitalizations. Once extubated we can explore possible underlying psychiatric issues or social issues that may be barriers to adequate management. Objective: Vital Signs Temp Pulse Resp BP Pulse Ox 37.5 C 65 15 137/76 H 91 L 03/09/17 13:00 03/09/17 13:00 03/09/17 13:00 03/09/17 13:00 03/09/17 13:00 Laboratory Results 03/08/17 06:36 03/09/17 05:10 03/08/17 03/09/17 03/10/17 05:59 05:59 05:59 Intake Total 600 2157 68 Output Total 4350 5195 1000 Balance -3750 -3038 -932 PT 20.6 SEC (12.0-15.0) H 03/08/17 06:36 INR 1.76 (0.83-1.16) H 03/08/17 06:36 Physical Exam - Physical Exam General Appearance: obese, other (sedated on vent) EENT: PERRL/EOMI Neck: supple Respiratory: lungs clear, normal breath sounds, No respiratory distress Cardiac/Chest: regular rate, rhythm, No edema Abdomen: non-tender, soft, No distended Skin: normal color, warm/dry Extremities: No pedal edema Neuro/Psych: cognition abnormalities ICD10 Worksheet Patient Problems: Problems Problem Status Onset CHF (congestive heart failure) Acute Chronic obstructive pulmonary disease with acute exacerbation Acute Chronic obstructive pulmonary disease with acute exacerbation Acute Palliative care encounter Acute Polycythemia Acute Right-sided heart failure Acute
--- NOTE | 2017-03-09 14:03 | HOSPPROG ---
Hospitalist Progress Note Assessment/Plan: 46 yo m w severe OHS here w respiratory failure resp failure: hypercarbic due to severe OHS, morbid obesity I wonder if yesterday's decompensation wasnt secondary to 02 therapy and loss of hypoxic resp drive currently on vent no parenchymal abnormalities or obstruction (imaging reviewed/interpreted by me) dc steroids PE: in 09/02 [facility] had been on/off anticoag 2/2 personal life issues on enox chf: acute on chronic r sided heart failure in past, LV function has been normal no pulm edema diuresis as tolerated use diamox given chronic resp acidosis w metabolic alkalosis I do not believe pulm edema w L sided chf is driving his respiratory failure proph: anticoagulated add ppi given intubation dispo: full code, ICU Objective: Vital Signs Temp Pulse Resp BP Pulse Ox 37.5 C 65 15 137/76 H 91 L 03/09/17 13:00 03/09/17 13:00 03/09/17 13:00 03/09/17 13:00 03/09/17 13:00 Laboratory Results 03/08/17 06:36 03/09/17 05:10 03/08/17 03/09/17 03/10/17 05:59 05:59 05:59 Intake Total 600 2157 68 Output Total 4350 5195 1000 Balance -2966 -4054 -932 PT 20.6 SEC (12.0-15.0) H 03/08/17 06:36 INR 1.76 (0.83-1.16) H 03/08/17 06:36 - Physical Exam Constitutional: no apparent distress, appears nourished, not in pain Ears, Nose, Mouth, Throat: moist mucous membranes, hearing normal Cardiovascular: regular rate and rhythym, no murmur, rub, or gallop Respiratory: no rales or rhonchi, clear to auscultation, reduced air movement Gastrointestinal: normoactive bowel sounds, soft, non-tender abdomen Genitourinary: hernandez in urethra Skin: warm, normal color Musculoskeletal: full muscle strength, no muscle tenderness Neurologic: AAOx3, sensation intact bilaterally Psychiatric: interacting appropriately, not anxious Lymph, Heme, Immunologic: no cervical LAD ICD10 Worksheet Patient Problems: Problems Problem Status Onset CHF (congestive heart failure) Acute Chronic obstructive pulmonary disease with acute exacerbation Acute Chronic obstructive pulmonary disease with acute exacerbation Acute Palliative care encounter Acute Polycythemia Acute Right-sided heart failure Acute
[2017-03-09] MEDS ORDERED: acetaZOLAMIDE 500 MG in SYRINGE 0 ML IVP ONE (14:14)
[2017-03-09] MEDS ORDERED: ALBUTEROL 3 ML DEYVIAL IH PRN (15:59)
[2017-03-09] MEDS ORDERED: IPRATROPIUM/ALBUTEROL 3 ML DEYVIAL IH SCH (21:00)
[2017-03-09] MEDS: IPRATROPIUM/ALBUTEROL 3 ML DEYVIAL IH SCH (23:31)
[2017-03-10 03:25] LABS: ANION GAP 6 mEq/L (8-16); CARBON DIOXIDE 32 mEq/l (22-31); CHLORIDE 97 mEq/L (97-110); CREATININE 0.9 mg/dL (0.7-1.3); GLOMERULAR FILTRATION RATE > 60; GLUCOSE 104 mg/dL (70-100); POTASSIUM 4.2 mEq/L (3.5-5.2); SODIUM 135 mEq/L (134-144)
[2017-03-10] MEDS: IPRATROPIUM/ALBUTEROL 3 ML DEYVIAL IH SCH ×4 (04:58→23:15)
[2017-03-10] MEDS: LEVOTHYROXINE 125 MCG TAB PO SCH (05:18)
[2017-03-10] MEDS: oxyCODONE IR 5 MG TAB PO PRN ×3 (07:51→20:20)
[2017-03-10] MEDS: HYDROCHLOROTHIAZIDE 25 MG TAB PO SCH (07:51)
[2017-03-10] MEDS: FAMOTIDINE 20 MG/NACL 50 ML IV SCH (07:51)
[2017-03-10] MEDS: LISINOPRIL 40 MG TAB PO SCH (07:51)
[2017-03-10] MEDS: medroxyPROGESTERone 10 MG TAB PO SCH ×3 (07:52→20:21)
[2017-03-10] MEDS: CARVEDILOL 6.25 MG TAB PO SCH ×2 (07:52→17:01)
[2017-03-10] MEDS: TAMSULOSIN HCL 0.4 MG CAP PO SCH ×2 (07:52→08:08)
[2017-03-10] MEDS: ENOXAPARIN 150 MG/ML SYR SC SCH ×2 (07:53→20:20)
[2017-03-10] MEDS: GABAPENTIN 400 MG CAP PO SCH ×3 (07:53→21:14)
[2017-03-10] MEDS: CHLORHEXIDINE GLUCONATE 15 ML UDL PO SCH (08:09)
[2017-03-10 08:17] LABS: % IMMATURE GRANULYOCYTES 1.5 % (0.0-1.1); ABSOLUTE IMMATURE GRANULOCYTES 0.19 10^3/uL (0.00-0.10); ADD DIFF? NO; ADD MORPH? NO; ADD SCAN? NO; ATYPICAL LYMPHOCYTE FLAG 0 (0-99); FRAGMENT RBC FLAG 0 (0-99); HEMATOCRIT 44.8 % (40.0-51.0); HEMOGLOBIN 13.8 g/dL (13.7-17.5); LEFT SHIFT FLG 10 (0-99); LIPEMIA HEMOLYSIS FLAG 80 (0-99); MEAN CELL HEMOGLOBIN 26.9 pg (27.9-34.1); MEAN CELL HEMOGLOBIN CONCENTR. 30.8 g/dL (32.4-36.7); MEAN CELL VOLUME 87.3 fL (81.5-99.8); MEAN PLATELET VOLUME 9.4 fL (8.7-11.7); PLATELET CLUMPS FLAG 0 (0-99); PLATELET COUNT 216 10^3/uL (150-400); RED BLOOD CELL COUNT 5.13 10^6/uL (4.40-6.38); RED CELL DISTRIBUTION WIDTH 15.8 % (11.5-15.2)
[2017-03-10 08:25] LABS: BASE EXCESS 2.3 mEq/L (-2.5-2.5); BICARBONATE 27 mEq/L (22-26); MEASURED OXYGEN SATURATION 89 % (92-95); PCO2 46 mmHg (34-38); PO2 59 mmHg (65-75); TCO2 29 mEq/L (23-27)
[2017-03-10 08:26] LABS: O2 CONCENTRATION LITERS 0.5 LITERS
--- NOTE | 2017-03-10 12:05 | PDINTPN ---
Linen Aide Progress Note Assessment/Plan: Assessment/plan: 46 morbidly obese M with recurrent hospital admissions for acute on chronic respiratory failure. He was recently admitted to [place] with similar issues but left AMA without oxygen or CPAP or Xarelto which he had been taking for a PE diagnosed in or 09/2016. He was re-admitted at [facility] with dyspnea and hypoxemia, but remained non-compliant with bipap until his AM ABG showed a pH of 7.0 and pCO2 of >125 coupled with hypersomnolence. He was emergently intubated and started on provera for respiratory stimulation. * Acute on chronic respiratory failure 2/2 AYLIN/OHS coupled with severe non- compliance. Stable overnight and compliant with bipap and oxygen. He was very tearful today [id number] his social situation. I suggested that compliance and cooperation (eg not leaving AMA) would allow us to help him much better in the future and he agreed. * AYLIN- continue with current bipap qhs. Ensure that he has access to equipment prior to dc * OHS- continue with provera as respiratory stimulant. The VTE risk is low with this medication. * PE- he had a positive CTA 09/03/16 at [facility] in [place] early during a prolonged hospital stay (one of many). His morbid obesity, sedentary lifestyle, and frequent hospitalizations are likely the causative factors for an otherwise unprovoked PE. Standard anticoagulation would be for 3-6 months, which is arguably now so consideration of discontuing anticoagulation would be reasonable in my opinion, given his risks for non-compliance and potential falls. I do not favor life long anticoagulation. * OK for floor 03/10/17 11:47 Objective: Vital Signs Temp Pulse Resp BP Pulse Ox 36.8 C 81 14 132/80 H 90 L 03/10/17 10:00 03/10/17 10:00 03/10/17 10:00 03/10/17 10:00 03/10/17 10:00 Laboratory Results 03/10/17 08:00 03/10/17 03:00 03/09/17 03/10/17 03/11/17 05:59 05:59 05:59 Intake Total 2152 1627 Output Total 8179 5047 Balance -3038 -3098 PT 20.6 SEC (12.0-15.0) H 03/08/17 06:36 INR 1.76 (0.83-1.16) H 03/08/17 06:36 Physical Exam - Physical Exam General Appearance: alert, no apparent distress, obese EENT: PERRL/EOMI Neck: supple Respiratory: lungs clear, normal breath sounds, No respiratory distress, No rales, No rhonchi Cardiac/Chest: normal peripheral pulses, regular rate, rhythm Abdomen: normal bowel sounds, non-tender, soft, No distended Skin: normal color, warm/dry, No cyanosis Lymphatic: no adenopathy Extremities: No pedal edema Neuro/Psych: alert, oriented x 3, depressed affect (tearful) ICD10 Worksheet Patient Problems: Problems Problem Status Onset CHF (congestive heart failure) Acute Chronic obstructive pulmonary disease with acute exacerbation Acute Chronic obstructive pulmonary disease with acute exacerbation Acute Palliative care encounter Acute Polycythemia Acute Right-sided heart failure Acute
[2017-03-10] MEDS ORDERED: acetaZOLAMIDE 500 MG in SYRINGE 0 ML IVP ONE (14:18)
--- NOTE | 2017-03-10 14:40 | HOSPPROG ---
Hospitalist Progress Note Assessment/Plan: 46 yo m w severe OHS here w respiratory failure resp failure: hypercarbic due to severe OHS, morbid obesity I wonder if yesterday's decompensation wasnt secondary to 02 therapy and loss of hypoxic resp drive currently on vent no parenchymal abnormalities or obstruction (imaging reviewed/interpreted by me) dc steroids PE: in 09/02 warrants skilled nursing anticoag had been on/off anticoag 2/2 personal life issues on enox chf: acute on chronic r sided heart failure in past, LV function has been normal no pulm edema diuresis as tolerated use diamox given chronic resp acidosis w metabolic alkalosis I do not believe pulm edema w L sided chf is driving his respiratory failure proph: anticoagulated add ppi given intubation dispo: full code, ICU Subjective: case d/w dr bhatia. no events tele (interp by me) Objective: Vital Signs Temp Pulse Resp BP Pulse Ox 36.6 C 85 22 H 128/79 H 88 L 03/10/17 12:15 03/10/17 12:15 03/10/17 12:15 03/10/17 12:15 03/10/17 12:15 Laboratory Results 03/10/17 08:00 03/10/17 03:00 03/09/17 03/10/17 03/11/17 05:59 05:59 05:59 Intake Total 2157 1627 Output Total 5195 4725 Balance -3038 -3098 PT 20.6 SEC (12.0-15.0) H 03/08/17 06:36 INR 1.76 (0.83-1.16) H 03/08/17 06:36 - Physical Exam Constitutional: no apparent distress, appears nourished, obese Eyes: PERRL Ears, Nose, Mouth, Throat: moist mucous membranes, hearing normal Cardiovascular: regular rate and rhythym, no murmur, rub, or gallop, edema Respiratory: no respiratory distress, no rales or rhonchi Gastrointestinal: normoactive bowel sounds, soft, non-tender abdomen Skin: warm, normal color Musculoskeletal: full muscle strength, no muscle tenderness Neurologic: AAOx3, sensation intact bilaterally Psychiatric: interacting appropriately ICD10 Worksheet Patient Problems: Problems Problem Status Onset CHF (congestive heart failure) Acute Chronic obstructive pulmonary disease with acute exacerbation Acute Chronic obstructive pulmonary disease with acute exacerbation Acute Palliative care encounter Acute Polycythemia Acute Right-sided heart failure Acute
[2017-03-10] MEDS: FAMOTIDINE 20 MG TAB PO SCH (21:14)
[2017-03-11] MEDS: ALPRAZolam 0.5 MG TAB PO PRN (01:06)
[2017-03-11] MEDS: LEVOTHYROXINE 125 MCG TAB PO SCH (05:12)
[2017-03-11] MEDS: IPRATROPIUM/ALBUTEROL 3 ML DEYVIAL IH SCH ×3 (05:27→18:12)
[2017-03-11 06:12] LABS: ANION GAP 5 mEq/L (8-16); CALCIUM 8.1 mg/dL (8.5-10.4); CARBON DIOXIDE 27 mEq/l (22-31); CHLORIDE 103 mEq/L (97-110); CREATININE 0.7 mg/dL (0.7-1.3); GLOMERULAR FILTRATION RATE > 60; GLUCOSE 89 mg/dL (70-100); POTASSIUM 3.9 mEq/L (3.5-5.2); SODIUM 135 mEq/L (134-144)
[2017-03-11] MEDS: oxyCODONE IR 5 MG TAB PO PRN ×3 (06:34→20:22)
[2017-03-11] MEDS ORDERED: POLYETHYLENE GLYCOL 3350 17 GM PKT PO PRN (08:47)
[2017-03-11] MEDS ORDERED: BISACODYL 10 MG SUPP PR PRN (08:47)
[2017-03-11] MEDS ORDERED: MAGNESIUM HYDROXIDE 30 ML UDCUP PO PRN (08:47)
[2017-03-11] MEDS ORDERED: DOCUSATE SODIUM 100 MG CAP PO PRN (08:48)
[2017-03-11] MEDS: CARVEDILOL 6.25 MG TAB PO SCH ×2 (08:56→18:30)
[2017-03-11] MEDS: LISINOPRIL 40 MG TAB PO SCH (08:56)
[2017-03-11] MEDS: FAMOTIDINE 20 MG TAB PO SCH ×2 (08:56→21:03)
[2017-03-11] MEDS: HYDROCHLOROTHIAZIDE 25 MG TAB PO SCH (08:57)
[2017-03-11] MEDS: SENNOSIDES/DOCUSATE SODIUM TAB PO SCH ×2 (08:57→21:03)
[2017-03-11] MEDS: medroxyPROGESTERone 10 MG TAB PO SCH (08:57)
[2017-03-11] MEDS: ENOXAPARIN 150 MG/ML SYR SC SCH ×2 (08:59→21:02)
[2017-03-11] MEDS: GABAPENTIN 400 MG CAP PO SCH ×3 (09:33→21:07)
[2017-03-11] MEDS: TAMSULOSIN HCL 0.4 MG CAP PO SCH (09:33)
[2017-03-11] MEDS ORDERED: acetaZOLAMIDE 500 MG in SYRINGE 0 ML IVP ONE (13:48)
--- NOTE | 2017-03-11 14:02 | HOSPPROG ---
Hospitalist Progress Note Assessment/Plan: 46 yo m w severe OHS here w respiratory failure resp failure: hypercarbic due to severe OHS, morbid obesity I wonder if yesterday's decompensation wasnt secondary to 02 therapy and loss of hypoxic resp drive currently on vent no parenchymal abnormalities or obstruction (imaging reviewed/interpreted by me) dc steroids PE: in 09/02 warrants detention anticoag had been on/off anticoag 2/2 personal life issues on enox chf: acute on chronic r sided heart failure in past, LV function has been normal no pulm edema diuresis as tolerated use diamox given chronic resp acidosis w metabolic alkalosis I do not believe pulm edema w L sided chf is driving his respiratory failure proph: anticoagulated dispo: full code, ICU risk: high Subjective: diuresing well. Objective: Vital Signs Temp Pulse Resp BP Pulse Ox 36.8 C 92 24 H 149/110 H 80 L 03/11/17 07:39 03/11/17 08:56 03/11/17 07:39 03/11/17 08:57 03/11/17 07:39 Laboratory Results 03/10/17 08:00 03/11/17 05:10 03/10/17 03/11/17 03/12/17 05:59 05:59 05:59 Intake Total 1627 1600 Output Total 4725 2024 250 Balance -3098 -425 -250 PT 20.6 SEC (12.0-15.0) H 03/08/17 06:36 INR 1.76 (0.83-1.16) H 03/08/17 06:36 - Physical Exam Constitutional: no apparent distress, appears nourished Eyes: PERRL, anicteric sclera Ears, Nose, Mouth, Throat: moist mucous membranes, hearing normal Cardiovascular: regular rate and rhythym Respiratory: other (exam) Gastrointestinal: normoactive bowel sounds, soft, non-tender abdomen Genitourinary: no bladder fullness, No hernandez in urethra Skin: warm, normal color Musculoskeletal: full muscle strength, no muscle tenderness Neurologic: AAOx3, sensation intact bilaterally Psychiatric: interacting appropriately ICD10 Worksheet Patient Problems: Problems Problem Status Onset CHF (congestive heart failure) Acute Chronic obstructive pulmonary disease with acute exacerbation Acute Chronic obstructive pulmonary disease with acute exacerbation Acute Palliative care encounter Acute Polycythemia Acute Right-sided heart failure Acute
[2017-03-11] MEDS: ALPRAZolam 1 MG TAB PO PRN (20:22)
[2017-03-12] MEDS: LEVOTHYROXINE 125 MCG TAB PO SCH (05:23)
[2017-03-12] MEDS: IPRATROPIUM/ALBUTEROL 3 ML DEYVIAL IH SCH ×5 (06:04→22:00)
[2017-03-12] MEDS: oxyCODONE IR 5 MG TAB PO PRN ×3 (08:22→20:21)
[2017-03-12] MEDS: LISINOPRIL 40 MG TAB PO SCH (08:23)
[2017-03-12] MEDS: HYDROCHLOROTHIAZIDE 25 MG TAB PO SCH (08:23)
[2017-03-12] MEDS: CARVEDILOL 6.25 MG TAB PO SCH ×2 (08:23→17:56)
[2017-03-12] MEDS: SENNOSIDES/DOCUSATE SODIUM TAB PO SCH ×2 (08:24→20:41)
[2017-03-12] MEDS: TAMSULOSIN HCL 0.4 MG CAP PO SCH (08:24)
[2017-03-12] MEDS: FAMOTIDINE 20 MG TAB PO SCH ×2 (08:25→20:41)
[2017-03-12] MEDS: ENOXAPARIN 150 MG/ML SYR SC SCH ×2 (08:25→20:20)
[2017-03-12] MEDS: GABAPENTIN 400 MG CAP PO SCH ×3 (08:25→20:41)
[2017-03-12 08:53] LABS: ANION GAP 10 mEq/L (8-16); CALCIUM 9.3 mg/dL (8.5-10.4); CARBON DIOXIDE 25 mEq/l (22-31); CHLORIDE 100 mEq/L (97-110); CREATININE 0.7 mg/dL (0.7-1.3); GLOMERULAR FILTRATION RATE > 60; GLUCOSE 169 mg/dL (70-100); POTASSIUM 4.4 mEq/L (3.5-5.2); SODIUM 135 mEq/L (134-144)
--- NOTE | 2017-03-12 13:50 | HOSPPROG ---
Hospitalist Progress Note Assessment/Plan: 46 yo m w severe OHS here w respiratory failure resp failure: hypercarbic due to severe OHS, morbid obesity I wonder if earlier decompensation wasnt secondary to 02 therapy and loss of hypoxic resp drive PE: in 09/02 has received 6 months of anticoag, albeit with interruptions this presentation uinlikely 2/2 VTE receiving treatment doses LMWH while here but would not dc on anticoag given poor follow up if going to snf, could consider anticoag during that duration as well chf: acute on chronic r sided heart failure in past, LV function has been normal no pulm edema diuresis as tolerated use diamox given chronic resp acidosis w metabolic alkalosis I do not believe pulm edema w L sided chf is driving his respiratory failure proph: anticoagulated dispo: full code, poor disposition options, considering SNF risk: high Subjective: feels better. adamant he needs bipap prior to dc Objective: Vital Signs Temp Pulse Resp BP Pulse Ox 36.9 C 88 18 117/104 H 98 03/11/17 21:36 03/12/17 07:37 03/12/17 07:37 03/12/17 07:37 03/12/17 07:37 Laboratory Results 03/10/17 08:00 03/12/17 08:30 03/11/17 03/12/17 03/13/17 05:59 05:59 05:59 Intake Total 1600 1750 Output Total 20247 725 Balance -425 -975 -725 PT 20.6 SEC (12.0-15.0) H 03/08/17 06:36 INR 1.76 (0.83-1.16) H 03/08/17 06:36 - Physical Exam Constitutional: no apparent distress, appears nourished Eyes: PERRL, anicteric sclera Ears, Nose, Mouth, Throat: moist mucous membranes, hearing normal Cardiovascular: regular rate and rhythym, no murmur, rub, or gallop Respiratory: no respiratory distress, no rales or rhonchi Gastrointestinal: normoactive bowel sounds, soft, non-tender abdomen Genitourinary: No hernandez in urethra Skin: warm, normal color Musculoskeletal: full muscle strength Neurologic: AAOx3 Psychiatric: interacting appropriately ICD10 Worksheet Patient Problems: Problems Problem Status Onset CHF (congestive heart failure) Acute Chronic obstructive pulmonary disease with acute exacerbation Acute Chronic obstructive pulmonary disease with acute exacerbation Acute Palliative care encounter Acute Polycythemia Acute Right-sided heart failure Acute
[2017-03-12 15:18] VITALS: TEMP 97.9
[2017-03-13] MEDS: ALPRAZolam 1 MG TAB PO PRN ×2 (02:56→21:57)
[2017-03-13] MEDS: oxyCODONE IR 5 MG TAB PO PRN ×5 (02:56→21:57)
[2017-03-13] MEDS: IPRATROPIUM/ALBUTEROL 3 ML DEYVIAL IH SCH ×3 (05:54→17:50)
[2017-03-13] MEDS: LEVOTHYROXINE 125 MCG TAB PO SCH ×2 (06:38→07:32)
[2017-03-13] MEDS: GABAPENTIN 400 MG CAP PO SCH ×3 (07:31→20:12)
[2017-03-13] MEDS: HYDROCHLOROTHIAZIDE 25 MG TAB PO SCH (07:33)
[2017-03-13] MEDS: CARVEDILOL 6.25 MG TAB PO SCH ×2 (07:33→17:06)
[2017-03-13] MEDS: TAMSULOSIN HCL 0.4 MG CAP PO SCH (07:33)
[2017-03-13] MEDS: ENOXAPARIN 150 MG/ML SYR SC SCH ×2 (07:34→20:12)
[2017-03-13] MEDS: LISINOPRIL 40 MG TAB PO SCH (07:38)
[2017-03-13] MEDS: FAMOTIDINE 20 MG TAB PO SCH ×2 (07:53→20:16)
[2017-03-13] MEDS: SENNOSIDES/DOCUSATE SODIUM TAB PO SCH ×2 (07:53→20:16)
[2017-03-13 15:04] LABS: ANION GAP 8 mEq/L (8-16); CALCIUM 9.7 mg/dL (8.5-10.4); CARBON DIOXIDE 24 mEq/l (22-31); CHLORIDE 102 mEq/L (97-110); CREATININE 0.8 mg/dL (0.7-1.3); GLOMERULAR FILTRATION RATE > 60; GLUCOSE 130 mg/dL (70-100); POTASSIUM 4.7 mEq/L (3.5-5.2); SODIUM 134 mEq/L (134-144)
--- NOTE | 2017-03-13 20:08 | HOSPPROG ---
Hospitalist Progress Note Assessment/Plan: DIAGNOSES: -ACUTE RESPIRATORY FAILURE -OBESITY HYPOVENTILATION SYNDROME -RIGHT SIDE CHF -diuresing w HCTZ as has sulfa allergy -HX OF PE 09/02 -now s/p 6 mos anticoag and not likley to be compliant -HOMELESSNESS There is continued gradual improvement in resp function and symptoms but not yet at baseline. Still using O2 at 3.5 L, which is problematic as he is homeless. PLANS: -continue current resp therapy and diuresis -discontinue anticaogulant -continue current efforts to find a respite care center he can go to for social reasons as well as to make "home" O2 available He has stated repeatedly during this admission that he will sign out AMA, but has been convinced so far to stay. He again today was emphatic that he was going to leave AMA, but has not yet done so. (has signed out AMA during previous hospital admissions) SUBJECTIVE: feels a bit better and walking more easily no chest pain eating ok OBJECTIVE: Vitals unchanged still using O2 at 3.5 l this am alert oriented skin warm dry good color resps not labored at rest lungs nearly inaudible breath sounds heart regular abd soft nontender still w edematous legs Objective: Vital Signs Temp Pulse Resp BP Pulse Ox 36.6 C 95 24 H 122/86 H 96 03/12/17 15:17 03/13/17 17:06 03/13/17 07:39 03/13/17 17:06 03/13/17 07:39 Laboratory Results 03/10/17 08:00 03/13/17 13:58 03/12/17 03/13/17 03/14/17 06:59 06:59 06:59 Intake Total 1750 250 0 Output Total 3100 1350 400 Balance -1350 -1100 -400 PT 20.6 SEC (12.0-15.0) H 03/08/17 06:36 INR 1.76 (0.83-1.16) H 03/08/17 06:36 ICD10 Worksheet Patient Problems: Problems Problem Status Onset CHF (congestive heart failure) Acute Chronic obstructive pulmonary disease with acute exacerbation Acute Chronic obstructive pulmonary disease with acute exacerbation Acute Palliative care encounter Acute Polycythemia Acute Right-sided heart failure Acute
[2017-03-14] MEDS: oxyCODONE IR 5 MG TAB PO PRN ×2 (05:52→11:48)
[2017-03-14] MEDS: LEVOTHYROXINE 125 MCG TAB PO SCH (05:54)
[2017-03-14] MEDS: IPRATROPIUM/ALBUTEROL 3 ML DEYVIAL IH SCH ×3 (06:50→10:07)
[2017-03-14 07:42] VITALS: BP 124/80; PULSE 96; RESP 18; O2SAT 93
[2017-03-14 09:02] LABS: ANION GAP 7 mEq/L (8-16); CALCIUM 9.3 mg/dL (8.5-10.4); CARBON DIOXIDE 29 mEq/l (22-31); CHLORIDE 97 mEq/L (97-110); CREATININE 0.8 mg/dL (0.7-1.3); GLOMERULAR FILTRATION RATE > 60; GLUCOSE 132 mg/dL (70-100); POTASSIUM 4.5 mEq/L (3.5-5.2); SODIUM 133 mEq/L (134-144)
[2017-03-14] MEDS: ENOXAPARIN 150 MG/ML SYR SC SCH (09:16)
[2017-03-14] MEDS: CARVEDILOL 6.25 MG TAB PO SCH (09:17)
[2017-03-14] MEDS: TAMSULOSIN HCL 0.4 MG CAP PO SCH (09:17)
[2017-03-14] MEDS: FAMOTIDINE 20 MG TAB PO SCH (09:18)
[2017-03-14] MEDS: SENNOSIDES/DOCUSATE SODIUM TAB PO SCH (09:18)
[2017-03-14] MEDS: HYDROCHLOROTHIAZIDE 25 MG TAB PO SCH (09:19)
[2017-03-14] MEDS: GABAPENTIN 400 MG CAP PO SCH (09:19)
[2017-03-14] MEDS: LISINOPRIL 40 MG TAB PO SCH (09:19)
--- NOTE | 2017-03-14 12:20 | PDHOMEO2F ---
Home Oxygen Face to Face Home Orders: I certify that a physician or a nurse practitioner or physician's program support assistant has had a [id number] encounter with this patient on the date of this order due to the diagnosis listed, which relates to the primary reason the patient requires home oxygen. Alternative treatments have been tried, or considered, and deemed ineffective. It is anticipated that supplemental oxygen will result in improvement with treatment. Home oxygen qualifying diagnosis: Chronic Hypoxic Respiratory Failure Home oxygen secondary diagnosis: Chronic Pulmonary Embolism SpO2 on room air (%): 80 Frequency of home oxygen needed: continuous Home oxygen liters per minute: 2 Home oxygen delivery device: Concentrator E-tanks for mobility and back up: Yes If ordering portable O2, is the patient mobile in the home?: Yes I certify that, based on these findings, the home oxygen is medically necessary for this patient for the following length of time. Length of time home oxygen needed: 3 months
--- NOTE | 2017-03-14 12:33 | PDDCSUM ---
Discharge Summary Discharge Summary: DISCHARGE SUMMARY FOLLOW-UP ITEMS: Follow-up creatinine BUN and lytes on 03/18 at [facility] DATE OF ADMISSION: 03/05/17 DATE OF DISCHARGE: 03/14/17 DISCHARGE DIAGNOSES: 1. Acute on chronic hypoxic and hypercapnic respiratory failure 2. Acute diastolic congestive heart failure exacerbation 3. History of pulmonary embolism 4. Obesity hypoventilation syndrome 5. Morbid obesity with BMI 51 6. Atelectasis 7. Acute encephalopathy 8. Chronic pain with continuous opiate and benzodiazepine dependency. CONSULTATIONS: Pulmonary Critical Care PROCEDURES / IMAGING: PICC line insertion CHIEF COMPLAINT: Acute shortness of breath and encephalopathy SUBJECTIVE: Patient is feeling well at time of discharge, he is looking forward to leaving PHYSICAL EXAM ON DISCHARGE: Systolic blood pressure is 120, heart rate 90, afebrile overnight, satting 94% on 3 L nasal cannula, alert awake oriented x3, pain level 0 10, morbidly obese, no respiratory distress LABS ON DISCHARGE: Serum sodium 133, creatinine 0.8, glucose 132, potassium 4.5 HOSPITAL COURSE BY PROBLEM: 1. Acute on chronic hypoxic and hypercapnic respiratory failure. Secondary to a combination of obesity hypoventilation syndrome, AYLIN, acute CHF exacerbation, underlying pulmonary embolism. The patient's acute presentation was most likely secondary to worsening hypercapnia in the setting of morbid obesity and upper airway obstruction resulting in CO2 retention and worsening mental status. Patient's pCO2 was greater than 125 and his pH was less than 7.1. Required intubation and mechanical ventilation as treatment and then he was extubated once his ABG improved. We recommend permissive hypoxia with a goal SpO2 of 88-90% on supplemental oxygen, this was discussed with the patient. He will be ordered for home oxygen and we will also discuss respiratory therapy whether BiPAP therapy high can be provided at bedtime. We will also recommended weight loss with the patient as well as noninvasive strategies such as sleeping on his side. 2. Acute diastolic congestive heart failure exacerbation. The patient had evidence of CHF including interstitial edema on chest x-rays low well as lower extremity edema and he may have also had a right-sided CHF component as well. He received IV Diamox and experienced good diuresis during his hospitalization. Was adjusted back to Lasix prior to discharge and discharged on 40 mg twice daily, given the risk of metabolic acidosis if he received Diamox and does not adhere to regular outpatient lab monitoring. I have discontinued his hydrochlorothiazide as patient has serious medication non adherence issues and streamlining him to a single agent for diuresis seems appropriate. He will also be continued on his beta-sharita and PARTH-inhibitor. 3. History of pulmonary embolism. Patient had a pulmonary embolism in August or September of 2016 and was placed on Coumadin thereafter but he had challenges with adherence and it appears that he may never have actually become therapeutic on his INR. Was then transitioned to Xarelto during his most recent hospitalization at [facility] after chest imaging demonstrated equivocal findings which were unable to exclude pulmonary embolism. The patient was not adherent to his relative so as he did not receive prior authorization and he did not activate his Xarelto starter pack. We have gone to great lengths to ensure that the patient's starter pack has been activated and he will receive Medicaid prior authorization so that he is able to receive Xarelto without cost barriers. I believe that the patient should be discharged on Xarelto at this time as I have low confidence that he is pulmonary embolism was adequately treated for 3-6 months between identification back in 2015 and the present date. Also, I reviewed the records from [facility] and chest imaging results were equivocal and were not able to exclude pulmonary embolism. 4. Obesity hypoventilation syndrome. Chronic, resulting in hypercapnia as outlined above, will attempt to provide BiPAP at discharge for nightly use. 5. Morbid obesity. Patient's BMI 51 and patient was counseled regarding weight loss. He did inquire into bariatric surgery and I did assessment counselor him that this would be a potential option if he was to demonstrate [facility] with [facility]. 6. Atelectasis. Secondary to compression from CHF, given incentive spirometer. 7. Acute encephalopathy. Evidenced by global brain dysfunction characterized as somnolence, impaired ability to verbally communicate, reduce level of responsiveness, acute worsening secondary to hypercapnia. Patient's mental status improved after his metabolic derangements were stabilized. 8. Chronic pain with continuous opiate and benzodiazepine dependency. Patient chronically takes Xanax at night oxycodone throughout the day for anxiety and back pain, most likely exacerbated by his obesity. I have counseled the patient to avoid over-sedation at night as this will most likely result in worsening hypercapnia, and I have advised him to take no more than 1 tab of oxycodone and 1 tab of Xanax at bedtime. We will provide him with a limited supply until he is able to establish care with a provider [facility]. DISCHARGE MEDICATIONS: Please see official discharge medication reconciliation sheet in chart , home oxycodone immediate release 60 tabs prescribed, Xarelto starter pack, Lasix 40 mg twice daily, all other home medications continued. DISCHARGE INSTRUCTIONS: Please adhere to her home oxygen, adhere to BiPAP if available, [facility] and have labs checked. TIME SPENT: Greater than 30 minutes were spent on direct patient care, as well as discharge planning and preparation.
[2017-03-14] MEDS ORDERED: RIVAROXABAN 15 MG TAB PO SCH (18:00)
== END 2017-03-14 14:37 | disposition home or self-care (01) | DRG 291 ==
LOC: F2W 21:10 → F2N 03-08 08:00 → F3E 03-10 12:00
PROVIDERS: ADMIT Internal Medicine; ATTEND Internal Medicine
PROC: 02HV33Z Insertion of Infusion Device into Superior Vena Cava, Percutaneous Approach (ICD-10-PCS; principal; 2017-03-08)
PROC: 0BH17EZ Insertion of Endotracheal Airway into Trachea, Via Natural or Artificial Opening (ICD-10-PCS; 2017-03-08)
DX: I11.0 Hypertensive heart disease with heart failure (principal); I50.31 Acute diastolic (congestive) heart failure; J96.02 Acute respiratory failure with hypercapnia; J96.01 Acute respiratory failure with hypoxia; E66.2 Morbid (severe) obesity with alveolar hypoventilation; G47.33 Obstructive sleep apnea (adult) (pediatric); J44.9 Chronic obstructive pulmonary disease, unspecified; E87.3 Alkalosis; G93.40 Encephalopathy, unspecified; N40.0 Benign prostatic hyperplasia without lower urinary tract symptoms; G89.29 Other chronic pain; F11.20 Opioid dependence, uncomplicated; F13.20 Sedative, hypnotic or anxiolytic dependence, uncomplicated; Z68.43 Body mass index [BMI] 50.0-59.9, adult; Z86.711 Personal history of pulmonary embolism; Z59.0 Homelessness; Z91.19 Patient's noncompliance with other medical treatment and regimen
CPT/HCPCS: 97116-GP; 97161-GP; 97166-GO; C1751; J1120; J2250; J2405; J2704; Q9957

== ENCOUNTER 2017-04-01 17:16 | Emergency (ER) | payer MEDICAID, OTHER ==
--- NOTE | 2017-04-01 17:19 | EDPHY ---
H & P HPI/ROS: HPI CHIEF COMPLAINT: Shortness of breath, chest pain HISTORY OF PRESENT ILLNESS: This patient 46-year-old male significant past medical history for COPD on 3 L nasal cannula, CPAP at night, history pulmonary embolism, heart failure, pneumothorax and pneumonia, presents to the [facility] emergency room by private vehicle for shortness of breath. Patient tells me over the past 3 days he has had progressively worsening shortness of breath. Patient tells me that he is having pain in his chest with inspiratory respiration. Describes a sharp stabbing pain takes deep breath in. Progressively worsening shortness of breath. Upon arrival here in the emergency room he is in respiratory distress tachypneic in the 40s, diaphoretic and cyanotic around his lips. Upon arrival he is immediately put on CPAP, and IV will be established and full petrophysicist. Past Medical History: Severe COPD, 3 L nasal cannula, CPAP at night, pulmonary embolism, heart failure, pneumothorax, pneumonia Past Surgical History: No recent surgical history Social History: Smokes marijuana denies other illicit drugs alcohol tobacco Family History: Noncontributory ROS REVIEW OF SYSTEMS: A comprehensive 10 point review of systems is otherwise negative aside from elements mentioned in the history of present illness. Exam Constitutional triage nursing summary reviewed, vital signs reviewed, awake/ alert. Eyes normal conjunctivae and sclera, EOMI, PERRLA. HENT normal inspection, atraumatic, moist mucus membranes, no epistaxis, neck supple/ no meningismus, no raccoon eyes. Respiratory respiratory respiratory distress, cyanosis around the mouth, tachypnea, diaphoresis Cardiovascular tachycardic, regular rhythm, no murmur, no edema, distal pulses normal. Gastrointestinal soft, non-tender, no rebound, no guarding, normal bowel sounds, no distension, no pulsatile mass. Genitourinary no CVA tenderness. Musculoskeletal no midline vertebral tenderness, full range of motion, no calf swelling, no tenderness of extremities, no meningismus, good pulses, neurovascularly intact. Skin pink, warm, & dry, no rash, skin atraumatic. Neurologic awake, alert and oriented x 3, AAOx3, moves all 4 extremities equally, motor intact, sensory intact, CN II-XII intact, normal cerebellar, normal vision, normal speech. Psychiatric normal mood/affect. Heme/Lymph/Immune no lymphadenopathy. Differential Diagnosis: Includes but is not limited to in a particular order, respiratory distress, pneumonia, COPD exacerbation, hypercarbic respiratory failure, hypoxic respiratory failure Medical Decision Making: Plan for this patient IV establishment, full petrophysicist, CPAP, continuous DuoNeb breathing treatment, IV Solu-Medrol IV fluid bolus, EKG. Re-evaluation: 174: patient has been placed on CPAP is tachypneic. Respiratory distress. Moving good air pulse ox 100%. Tachypnea in the 40s. Patient is speaking in clear full sentences to me. Patient moving good air however still short of breath. Due to the critical nature of this patient due to his respiratory distress I have asked [address] [facility] to be called to the patient be emergently transferred to [facility] emergency room for BiPAP ventilation and intensive care unit monitoring. The patient at this time is been stabilized as best as possible. It is possible this patient may turn into respiratory failure and intubation but however at this time patient moving good air pulse ox 100% speaking clearly to me answer my questions. No indication of impending for respiratory failure at this time. Recommend emergent transport to [facility] emergency room for BiPAP ventilation and further critical care and ICU admission. 1745: [facility] will transport him emergently to [facility]. I spoke with Dr. Zamora who accepted the patient into the emergency room. Critical Care: Total Critical Care Time Spent Managing this Patient: 30Minutes. This time was spent Exclusively with this patient. This Care was exclusive of procedures. The Organ System/life at risk was respiratory This Patient was in Critical Condition because respiratory distress 1747: At time of transfer patient patient in respiratory distress however maintaining sats speaking to me answer my questions, no evidence of acute impending respiratory failure however concern for further respiratory decline and need for ICU stay and BiPAP ventilation I have asked patient to be emergently transfer to [facility]. Patient agrees with this plan. No indication to emergently intubate at this time given him answer my questions appropriately not lethargic, maintaining his sats had moving good air. Would recommend current CPAP and continuous breathing treatments and then transitioned to BiPAP. Close monitoring ICU admission. Source: Patient - Personal History Tetanus Vaccine Date: april 2013 - Medical/Surgical History Hx Asthma: Yes Hx Chronic Respiratory Disease: Yes Hx Diabetes: No Hx Cardiac Disease: Yes Hx Renal Disease: No Hx Cirrhosis: No Hx Alcoholism: No Hx HIV/AIDS: No Hx Splenectomy or Spleen Trauma: No Other PMH: htn. hypothyroid. copd. cpap with o2 at night. Obesity - Social History Smoking Status: Never smoked Allergies/Adverse Reactions: Penicillins Allergy (Verified 03/05/17 18:29) sulfamethoxazole Allergy (Verified 03/05/17 18:29) trimethoprim Allergy (Verified 03/05/17 18:29) Home Medications: Medication Instructions Recorded Albuterol [Proventil Inhaler HFA 2 puffs IH Q4 PRN #1 mdi 03/13/17 (*)] Carvedilol [Coreg (*)] 6.25 mg PO BIDMEAL #60 tab 03/13/17 Gabapentin [Neurontin] 1,200 mg PO TID #120 tablet 03/13/17 Ipratropium/Albuterol [Combivent 1 inh IH QID #1 mdi MDD 6 PUFFS 03/13/17 Respimat Inhal [place](*)] DAILY Levothyroxine [Synthroid 125 mcg 125 mcg PO DAILY06 #30 tab 03/13/17 (*)] Lisinopril [Zestril 40 mg (*)] 40 mg PO DAILY #30 tab 03/13/17 Tamsulosin HCl [Flomax 0.4 MG (*)] 0.4 mg PO DAILY #30 cap 03/13/17 ALPRAZolam [Xanax 1 MG (*)] 1 mg PO HS PRN #14 tab 03/14/17 Furosemide [Lasix 40 MG (*)] 40 mg PO BIDDIUR #60 tab 03/14/17 Rivaroxaban [Xarelto] 20 mg PO DAILY #30 tablet 03/14/17 oxyCODONE IR [Oxycodone Ir (*)] 5 - 10 mg PO Q4 PRN #60 tab 03/14/17 Departure - Departure Disposition: Acute Care Hospital Not [facility] Clinical Impression: Respiratory distress, COPD exacerbation Condition: Critical
[2017-04-01] MEDS ORDERED: ASPIRIN 81 MG CHEWABLE TAB PO ONE (17:23)
[2017-04-01] MEDS ORDERED: IPRATROPIUM/ALBUTEROL 3 ML DEYVIAL IH ONE (17:23)
[2017-04-01] MEDS ORDERED: NS 1,000 ML IV ONE (17:23)
[2017-04-01] MEDS ORDERED: IPRATROPIUM/ALBUTEROL 3 ML DEYVIAL ONE (17:34)
[2017-04-01 17:40] LABS: % IMMATURE GRANULYOCYTES 1.3 % (0.0-1.1); ABSOLUTE IMMATURE GRANULOCYTES 0.21 10^3/uL (0.00-0.10); ADD DIFF? NO; ADD MORPH? NO; ADD SCAN? NO; ATYPICAL LYMPHOCYTE FLAG 30 (0-99); FRAGMENT RBC FLAG 0 (0-99); HEMATOCRIT 46.9 % (40.0-51.0); HEMOGLOBIN 14.4 g/dL (13.7-17.5); LEFT SHIFT FLG 10 (0-99); LIPEMIA HEMOLYSIS FLAG 80 (0-99); MEAN CELL HEMOGLOBIN 27.9 pg (27.9-34.1); MEAN CELL HEMOGLOBIN CONCENTR. 30.7 g/dL (32.4-36.7); MEAN CELL VOLUME 90.9 fL (81.5-99.8); MEAN PLATELET VOLUME 9.2 fL (8.7-11.7); PLATELET CLUMPS FLAG 0 (0-99); PLATELET COUNT 378 10^3/uL (150-400); RED BLOOD CELL COUNT 5.16 10^6/uL (4.40-6.38); RED CELL DISTRIBUTION WIDTH 16.2 % (11.5-15.2)
[2017-04-01 17:50] LABS: INR 1.35 (0.83-1.16); PROTIME(PATIENT) 16.4 SEC (12.0-15.0)
[2017-04-01 17:51] LABS: APTT 31.6 SEC (23.0-38.0)
[2017-04-01 18:01] LABS: ALANINE AMINOTRANSFERASE 24 IU/L (21-72); ALKALINE PHOSPHATASE 67 IU/L (38-126); ANION GAP 17 mEq/L (8-16); ASPARTATE AMINOTRANSFERASE 16 IU/L (17-59); BILIRUBIN,TOTAL 0.4 mg/dL (0.1-1.4); BILIRUBIN-CONJUGATED 0.3 mg/dL (0.0-0.5); BILIRUBIN-UNCONJUGATED 0.1 mg/dL (0.0-1.1); CALCIUM 9.6 mg/dL (8.5-10.4); CARBON DIOXIDE 32 mEq/l (22-31); CHLORIDE 96 mEq/L (97-110); CREATININE 0.8 mg/dL (0.7-1.3); GLOMERULAR FILTRATION RATE > 60; GLUCOSE 104 mg/dL (70-100); MAGNESIUM 1.5 mg/dL (1.6-2.3); POTASSIUM 3.9 mEq/L (3.5-5.2); SODIUM 145 mEq/L (134-144); TOTAL PROTEIN 7.9 g/dL (6.3-8.2)
[2017-04-01 18:06] LABS: CREATINE KINASE-MB FRACTION 0.98 ng/mL (0-4.55); TROPONIN I < 0.012 ng/mL (0-0.034)
[2017-04-01 19:21] VITALS: BP 142/102; PULSE 108; RESP 20; O2SAT 99
== END 2017-04-01 17:50 | disposition short-term general hospital (02) ==
LOC: CED 17:16
DX: J44.1 Chronic obstructive pulmonary disease with (acute) exacerbation (principal); I10 Essential (primary) hypertension
CPT/HCPCS: 80048-PO; 80076-PO; 82550-PO; 82553-PO; 83605-PO; 83690-PO; 83735-PO; 83880-PO; 84484-PO; 85025-PO; 85378-PO; 85610-PO; 85730-PO

== ENCOUNTER 2017-04-03 20:22 | Inpatient (IN) | payer MEDICAID ==
--- NOTE | 2017-04-03 20:26 | EDPHY ---
H & P Time Seen by Provider: 04/03/17 20:25 HPI/ROS: CHIEF COMPLAINT: Shortness of breath HISTORY OF PRESENT ILLNESS: Patient is a 46-year-old male with a history of COPD, CPAP at night, PE and CHF who presents to the emergency department with increasing shortness of breath. Patient states he was in [facility] a couple of weeks ago and intubated for his shortness of breath. He was seen at [facility] on 04/01/17 for the same symptoms and transferred to [facility]. He left AMA. He now has increasing shortness of breath and called EMS. He complains of sharp injured chest pain on the right and a heaviness over his sternum. His pain is worse with respirations. It does not radiate. His respirations feel "tight." He has had no new leg pain or swelling. No fevers or chills. No significant cough. EMS gave the patient Solu-Medrol, DuoNeb, aspirin REVIEW OF SYSTEMS: My complete review of systems is negative except as mentioned in the HPI. Past Medical/Surgical History: Includes COPD, respiratory failure, pulmonary embolus, heart failure, pneumothorax, pneumonia Past surgical history: No recent surgery Social history: The patient smokes marijuana but denies other drug use. Does not smoke. Family history: Noncontributory Smoking Status: Never smoked Physical Exam: Vitals noted GENERAL: Moderate acute respiratory distress, alert. Obese HEENT: Eyes normal to inspection, normal pharynx, no signs of dehydration. NECK: No thyromegaly, no lymphadenopathy, supple. RESPIRATORY: Decreased breath sounds throughout with poor air movement. No rales or rhonchi. No auscultated wheezing. Moderate respiratory distress. Accessory muscle use. CVS: Regular rate and rhythm, no rubs, murmurs, or gallops. ABDOMEN: Soft, nontender, nondistended, no organomegaly. BACK: Normal to inspection, no CVA tenderness. SKIN: Normal color, no rash, warm, diaphoretic. No pallor. EXTREMITIES: No pedal edema, no calf tenderness, no Homans sign or cords, no joint swelling. NEURO/PSYCH: Alert and oriented x3, tearful, normal motor sensory exam. Constitutional: Initial Vital Signs Temperature (C) 36.7 C 04/03/17 20:22 Heart Rate 86 04/03/17 20:22 Respiratory Rate 18 04/03/17 20:22 Blood Pressure 131/100 H 04/03/17 20:22 O2 Sat (%) 100 04/03/17 20:22 O2 Delivery Mode Nasal Cannula O2 (L/minute) 5 Allergies/Adverse Reactions: amoxicillin Allergy (Verified 04/03/17 20:25) Penicillins Allergy (Verified 04/01/17 18:05) Sulfa (Sulfonamide Antibiotics) Allergy (Verified 04/03/17 20:25) sulfamethoxazole Allergy (Verified 04/01/17 18:05) trimethoprim Allergy (Verified 04/01/17 18:05) Home Medications: Medication Instructions Recorded Albuterol [Proventil Inhaler HFA 2 puffs IH Q4 PRN #1 mdi 03/13/17 (*)] Carvedilol [Coreg (*)] 6.25 mg PO BIDMEAL #60 tab 03/13/17 Gabapentin [Neurontin] 1,200 mg PO TID #120 tablet 03/13/17 Ipratropium/Albuterol [Combivent 1 inh IH QID #1 mdi MDD 6 PUFFS 03/13/17 Respimat Inhal [place](*)] DAILY Levothyroxine [Synthroid 125 mcg 125 mcg PO DAILY06 #30 tab 03/13/17 (*)] Lisinopril [Zestril 40 mg (*)] 40 mg PO DAILY #30 tab 03/13/17 Furosemide [Lasix 40 MG (*)] 40 mg PO BIDDIUR #60 tab 03/14/17 ALPRAZolam [Xanax 1 MG (*)] 1 mg PO BID PRN 04/03/17 Rivaroxaban [Xarelto 15mg (*)] 15 mg PO BID 04/03/17 oxyCODONE IR [Oxycodone Ir (*)] 10 mg PO Q4H PRN 04/03/17 Medical Decision Making - Diagnostics Imaging Results: Imaging Impressions Chest X-Ray 04/03/17 20:35 Impression: Mild pulmonary edema. ED Course/Re-evaluation: I met EMS on arrival. I took report from the resident care coordinator. I discussed the plan with the patient. After my initial evaluation I placed the patient on BiPAP. Was placed on 04/09 which are his home settings. I reviewed the patient's previous medical record. Laboratory studies, chest x-ray and EKG were ordered. EKG shows normal sinus rhythm, normal rate, normal axis, normal intervals. VPC. There are no ST or T-wave abnormalities. EKG is normal as interpreted by me. I reviewed the patient's laboratory studies. Patient had mildly elevated white count 11. Patient had a low chloride on his chemistry. His lactic acid was 1.6. I rechecked the patient on numerous occasions. On recheck he was maintained his oxygen saturation. He was feeling better on BiPAP. This was discontinued. He is placed on nasal cannula. He was tolerating nasal cannula well. Chest x-ray revealed mild pulmonary edema. Please refer the dictated report by Dr. Dariusz Tomlin. 2215: I rechecked the patient. He still had decreased air movement. Repeat albuterol was ordered. I discussed case with the hospitalist service, Dr. Wasserman. Subsequently spoke with Dr. rdz. She recommended an ABG. This was ordered. I discussed the plan with the patient. I answered all his questions. Differential Diagnosis: My differential includes but is not limited to respiratory failure, hypoxia, hypercapnia, COPD exacerbation, CHF, pulmonary embolus, ACS, acute CA, dissection, aneurysm Critical Care Time: The patient required 35 minutes of critical care time. This was exclusive of any unbundled procedure. This was due the patient's significant respiratory distress on arrival, need for frequent rechecks, placement of BiPAP, consultation with hospitalist service. - Data Points Laboratory Results: Laboratory Results 04/03/17 20:20 04/03/17 20:20 04/03/17 04/03/17 04/03/17 20:40 20:20 20:20 WBC 11.68 10^3/uL H 10^3/uL (3.80-9.50) RBC 5.27 10^6/uL 10^6/uL (4.40-6.38) Hgb 14.6 g/dL g/dL (13.7-17.5) Hct 47.8 % % (40.0-51.0) MCV 90.7 fL fL (81.5-99.8) MCH 27.7 pg L pg (27.9-34.1) MCHC 30.5 g/dL L g/dL (32.4-36.7) RDW 15.9 % H % (11.5-15.2) Plt Count 310 10^3/uL D 10^3/uL (150-400) MPV 9.3 fL fL (8.7-11.7) Neut % (Auto) 68.0 % % (39.3-74.2) Lymph % (Auto) 21.7 % % (15.0-45.0) Hill % (Auto) 7.5 % % (4.5-13.0) Eos % (Auto) 1.0 % % (0.6-7.6) Baso % (Auto) 0.4 % % (0.3-1.7) Nucleat RBC Rel Count 0.0 % % (0.0-0.2) Absolute Neuts (auto) 7.93 10^3/uL H 10^3/uL (1.70-6.50) Absolute Lymphs (auto) 2.54 10^3/uL 10^3/uL (1.00-3.00) Absolute Monos (auto) 0.88 10^3/uL H 10^3/uL (0.30-0.80) Absolute Eos (auto) 0.12 10^3/uL 10^3/uL (0.03-0.40) Absolute Basos (auto) 0.05 10^3/uL 10^3/uL (0.02-0.10) Absolute Nucleated RBC 0.00 10^3/uL 10^3/uL (0-0.01) Immature Gran % 1.4 % H % (0.0-1.1) Immature Gran # 0.16 10^3/uL H 10^3/uL (0.00-0.10) VBG Lactic Acid 1.6 mmol/L mmol/L (0.7-2.1) Sodium 140 mEq/L mEq/L (134-144) Potassium 3.9 mEq/L mEq/L (3.5-5.2) Chloride 94 mEq/L L mEq/L (97-110) Carbon Dioxide 36 mEq/l H mEq/l (22-31) Anion Gap 10 mEq/L mEq/L (8-16) BUN 15 mg/dL mg/dL (7-23) Creatinine 0.7 mg/dL mg/dL (0.7-1.3) Estimated GFR > 60 Glucose 73 mg/dL mg/dL (70-100) Calcium 9.4 mg/dL mg/dL (8.5-10.4) Troponin I < 0.012 ng/mL ng/mL (0-0.034) NT-Pro-B Natriuret Pep 185 pg/mL H pg/mL (0-125) Medications Given: Discontinued Medications Albuterol (Proventil Neb) 3 ml IH EDNOW ONE Stop: 04/03/17 20:36 Last Admin: 04/03/17 20:52 Dose: 3 ml Albuterol (Proventil Neb) 3 ml IH EDNOW ONE Stop: 04/03/17 22:21 Last Admin: 04/03/17 22:22 Dose: 3 ml Departure - Departure Disposition: [facility] Acute Clinical Impression: Chronic obstructive pulmonary disease with acute exacerbation CHF (congestive heart failure) Qualifiers: Congestive heart failure type: unspecified congestive heart failure type Congestive heart failure chronicity: acute Qualified Code(s): I50.9 - Heart failure, unspecified Condition: Fair
[2017-04-03] MEDS ORDERED: ALBUTEROL 3 ML DEYVIAL IH ONE ×2 (20:35→22:20)
[2017-04-03 20:42] LABS: % IMMATURE GRANULYOCYTES 1.4 % (0.0-1.1); ABSOLUTE IMMATURE GRANULOCYTES 0.16 10^3/uL (0.00-0.10); ADD DIFF? NO; ADD MORPH? NO; ADD SCAN? NO; ATYPICAL LYMPHOCYTE FLAG 60 (0-99); FRAGMENT RBC FLAG 0 (0-99); HEMATOCRIT 47.8 % (40.0-51.0); HEMOGLOBIN 14.6 g/dL (13.7-17.5); LEFT SHIFT FLG 10 (0-99); LIPEMIA HEMOLYSIS FLAG 80 (0-99); MEAN CELL HEMOGLOBIN 27.7 pg (27.9-34.1); MEAN CELL HEMOGLOBIN CONCENTR. 30.5 g/dL (32.4-36.7); MEAN CELL VOLUME 90.7 fL (81.5-99.8); MEAN PLATELET VOLUME 9.3 fL (8.7-11.7); PLATELET CLUMPS FLAG 0 (0-99); PLATELET COUNT 310 10^3/uL (150-400); RED BLOOD CELL COUNT 5.27 10^6/uL (4.40-6.38); RED CELL DISTRIBUTION WIDTH 15.9 % (11.5-15.2)
--- NOTE | 2017-04-03 20:49 | CPEKG ---
Heart Rate: 99 RR Interval: 606 P-R Interval: 176 QRSD Interval: 82 QT Interval: 348 QTC Interval: 447 P [place]: 2 QRS [place]: 37 T Wave [place]: 12 EKG Severity - OTHERWISE NORMAL ECG - EKG Impression: SINUS RHYTHM EKG Impression: VENTRICULAR PREMATURE COMPLEX Electronically Signed By: Kayleigh Velasquez 03-Apr-2017 22:57:50
[2017-04-03 20:52] LABS: ANION GAP 10 mEq/L (8-16); CALCIUM 9.4 mg/dL (8.5-10.4); CARBON DIOXIDE 36 mEq/l (22-31); CHLORIDE 94 mEq/L (97-110); CREATININE 0.7 mg/dL (0.7-1.3); GLOMERULAR FILTRATION RATE > 60; GLUCOSE 73 mg/dL (70-100); POTASSIUM 3.9 mEq/L (3.5-5.2); SODIUM 140 mEq/L (134-144)
[2017-04-03 21:04] LABS: TROPONIN I < 0.012 ng/mL (0-0.034)
[2017-04-03] MEDS ORDERED: ALBUTEROL 3 ML DEYVIAL ONE (22:15)
[2017-04-03] MEDS ORDERED: ONDANSETRON 4 MG/2 ML VIAL IVP PRN (22:52)
[2017-04-03] MEDS ORDERED: ONDANSETRON DISINTEGRATING 4 MG TAB PO PRN (22:52)
[2017-04-03] MEDS ORDERED: ACETAMINOPHEN 325 MG TAB PO PRN (22:52)
[2017-04-03] MEDS ORDERED: ALBUTEROL 3 ML DEYVIAL IH PRN (22:52)
[2017-04-03 22:56] LABS: BASE EXCESS 8.1 mEq/L (-2.5-2.5); BICARBONATE 35 mEq/L (22-26); MEASURED OXYGEN SATURATION 60 % (92-95); PCO2 61 mmHg (34-38); TCO2 37 mEq/L (23-27)
[2017-04-03] MEDS ORDERED: ALPRAZolam 1 MG TAB PO PRN (22:56)
[2017-04-03 22:57] LABS: BIPAP YES; EXP PRESSURE 5; INSP PRESSURE 18; O2 CONCENTRATIION 35 % (0-100); P/F RATIO 94 RATIO
[2017-04-03 22:59] LABS: PO2 33 mmHg (65-75)
[2017-04-03] MEDS: FUROSEMIDE 40 MG TAB PO SCH (23:30)
[2017-04-03] MEDS ORDERED: GABAPENTIN 400 MG CAP ONE (23:31)
[2017-04-04] MEDS: oxyCODONE IR 5 MG TAB PO PRN ×4 (00:07→13:59)
[2017-04-04] MEDS: CARVEDILOL 6.25 MG TAB PO SCH ×2 (00:08→09:18)
[2017-04-04] MEDS: AZITHROMYCIN 250 MG TAB PO SCH ×2 (00:08→09:18)
[2017-04-04] MEDS: RIVAROXABAN 15 MG TAB PO SCH ×2 (00:08→09:18)
[2017-04-04] MEDS: GABAPENTIN 400 MG CAP PO SCH ×2 (00:09→09:19)
--- NOTE | 2017-04-04 00:27 | GHP ---
[f rep st] HISTORY AND PHYSICAL DATE OF ADMISSION: 04/03/2017 CHIEF COMPLAINT: Shortness of breath. HISTORY OF PRESENT ILLNESS: The patient is a 46-year-old man who was recently admitted to [facility] with respiratory failure requiring intubation and mechanical ventilation. Shortly thereafter, he presented to [facility] and was transferred to [facility] where he left today against medical advice, opting to make his way back to [place]. He does require home oxygen, as well as home BiPAP. However, since he left the hospital AMA, he has not had his oxygen or his BiPAP. In addition, he is currently homeless. During his travels back to [place] after leaving the [facility], he became increasingly short of breath and called 911. Upon arrival to the emergency department, he was quite tachypneic. He complained of sharp chest pain on the right side with substernal chest pressure. He denies fevers, chills, or cough. He was diagnosed with pulmonary embolism approximately 6 months ago, though has been nonadherent to anticoagulation therapy. He was able to obtain a prescription for Xarelto at discharge from [facility] in February 2017. He states he intermittently takes this. He denies any increase in leg swelling or edema. He does endorse orthopnea and paroxysmal nocturnal dyspnea, stating he is unable to lie flat due to shortness of breath. He does not follow his daily weights. His discharge weight from his last hospitalization was 161 kg on March 10, and upon arrival to the emergency department today, his weight is 162 kg. In the emergency department, he has immediately placed on BiPAP. He was given multiple nebulizer treatments. He has since been taken off BiPAP and is oxygenating in the low 90s on 3 L by nasal cannula. He is admitted to the hospital for further management. PAST MEDICAL HISTORY: 1. Chronic hypoxemic and hypercapnic respiratory failure, which is multifactorial, including COPD, obstructive sleep apnea, obesity of hypoventilation, chronic diastolic heart failure, history of pulmonary embolism. His baseline bicarb is around 36. 2. History of pulmonary embolism with nonadherence to anticoagulation therapy. 3. Pulmonary hypertension by echocardiogram with a pulmonary pressure of 53 most recently. 4. Chronic obstructive pulmonary disease on chronic oxygen at 3 L/min, though he is currently without home oxygen. 5. Chronic diastolic heart failure. 6. Obesity hypoventilation. 7. Obstructive sleep apnea. 8. Chronic pain. 9. Chronic continuous opioid dependence. 10. Severe obesity with a BMI of 51. 11. History of neurologic injury in the setting of intubation, including right hand wrist drop and biceps injury. 12. History of reported bipolar disorder. PAST SURGICAL HISTORY: Appendectomy. MEDICATIONS: Please see [facility] for complete updated outpatient medication list. ALLERGIES: Penicillin and Bactrim. SOCIAL HISTORY: The patient is . He recently became homeless, and upon leaving [facility] against medical advice, he is currently without oxygen or BiPAP, both of which have been prescribed in the outpatient setting. He is a former smoker. He denies alcohol. He endorses marijuana use. Denies other illicit drug use. FAMILY HISTORY: Unknown, as the patient is adopted. REVIEW OF SYSTEMS: A 10-point review of systems was performed and is negative except as stated in HPI. OBJECTIVE: VITAL SIGNS: Upon arrival to the emergency department, temperature is 36.7, blood pressure 131/100, heart rate 86, respiratory rate 18. He was immediately placed on BiPAP, saturating 100%. GENERAL: The patient is awake, alert, and oriented, in no acute distress. HEENT: Head is atraumatic, normocephalic. Pupils equal, round, and reactive to light. Extraocular movements intact. Oropharynx is clear. Mucous membranes are moist. NECK: Supple. There is no appreciable JVD, though difficult body habitus to assess for jugular venous distention. HEART: Regular rate and rhythm with distant heart sounds. No appreciable murmur. LUNGS: Minimal air flow with no wheezes , rales, or rhonchi detected. ABDOMEN: Soft, obese, nondistended, nontender. Normoactive bowel tones. EXTREMITIES: He has 1+ bilateral lower extremity peripheral edema which is nonpitting. NEUROLOGIC: Cranial nerves 2-12 are grossly intact. NEUROLOGIC: Overall nonfocal. He moves all 4 extremities. Strength is symmetric with no focal neuro deficits. LABORATORY DATA: CBC reveals a white blood cell count of 11.6. Basic metabolic panel: Potassium is normal at 3.9, chloride is low at 94, serum CO2 is 36, creatinine is normal at 0.7. Troponin is negative. NT-proBNP is 185; his baseline is in the 300-400 range. ABG shows a pH of 7.38 with pCO2 of 61. I note his pCO2 during his prior hospitalization was as high as 125, pO2 was low at 33, his lactic acid is normal. Chest x-ray shows mild cardiomegaly with hypoexpanded lung ohara, some mild pulmonary edema is noted, per the Radiology read. EKG shows normal sinus rhythm. I do note Q-waves and flipped T-waves in lead III, consistent with his prior diagnosis of PE. Otherwise there are no ST- segment or T-wave changes concerning for acute ischemia. ASSESSMENT AND PLAN: This patient is a 46-year-old male with history of chronic respiratory failure, which is multifactorial, with oxygen-dependent chronic obstructive pulmonary disease, chronic diastolic heart failure, hypoventilation of obesity, obstructive sleep apnea, and is likely hastened by his use of chronic benzodiazepines and opiates. He is admitted to the hospital for further management. 1. Wyvfs-dh-fxqswif hypoxemic hypercarbic respiratory failure: I believe the patient is near his baseline, though he may be having a mild COPD exacerbation. His pCO2 is 61 compared to 125 during prior hospitalization. He left [facility] today against medical advice without home oxygen or a home BiPAP machine. He is currently stable on 3 L of oxygen per minute. Will continue his nighttime BiPAP at his home settings. With respect to his heart failure, his BNP is below his baseline. He is also near his baseline weight, per his recent discharge weight after inpatient diuresis. Will continue his home Lasix, beta sharita, and PARTH inhibitor. Will give him scheduled DuoNeb with p.r.n. albuterol nebs. He received IV Solu-Medrol in the ED. Will continue oral prednisone and add azithromycin. He will need a Case Management consult and may require placement, as he is going to need home oxygen and home BiPAP, which precludes his candidacy to dispo to the [facility] from here. 2. History of pulmonary embolism. Per chart review and the patient's history, he has not been adherent to chronic anticoagulation use. Will continue his Xarelto. 3. Chronic pain with chronic continuous opioid dependence. Will continue the patient's home p.r.n. oxycodone. 4. Depression-anxiety. The patient is tearful and anxious on admission. I will ask for behavioral health nurse consult. Will continue on his twice daily Xanax. He may be a candidate for SSRI therapy if he is agreeable. 5. Severe obesity with body mass index of 51. This complicates all aspects of care and likely contributes to his chronic respiratory failure. 6. Deep venous thrombosis prophylaxis. As above, the patient will be maintained on his Xarelto for anticoagulation. 7. Code status. The patient is full code. 8. Disposition. The patient is admitted to inpatient status, as I suspect he will require greater than 48 hours hospitalization to maximize his respiratory status. He may require placement. A Case Management consult has been requested. /[id number]/MODL MTDD
[2017-04-04] MEDS ORDERED: hydrALAZINE 25 MG TAB PO PRN (01:25)
[2017-04-04] MEDS: IPRATROPIUM/ALBUTEROL 3 ML DEYVIAL IH SCH ×4 (05:16→11:41)
[2017-04-04] MEDS ORDERED: LEVOTHYROXINE 125 MCG TAB PO SCH (06:00)
[2017-04-04 08:45] LABS: ANION GAP 10 mEq/L (8-16); CALCIUM 9.2 mg/dL (8.5-10.4); CARBON DIOXIDE 32 mEq/l (22-31); CHLORIDE 98 mEq/L (97-110); CREATININE 0.6 mg/dL (0.7-1.3); GLOMERULAR FILTRATION RATE > 60; GLUCOSE 135 mg/dL (70-100); POTASSIUM 4.6 mEq/L (3.5-5.2); SODIUM 140 mEq/L (134-144)
[2017-04-04 08:57] LABS: TROPONIN I < 0.012 ng/mL (0-0.034)
[2017-04-04] MEDS ORDERED: LISINOPRIL 40 MG TAB PO SCH (09:00)
[2017-04-04] MEDS ORDERED: predniSONE 20 MG TAB PO SCH (09:00)
[2017-04-04] MEDS: FUROSEMIDE 40 MG TAB PO SCH (09:18)
--- NOTE | 2017-04-04 09:19 | CPEKG ---
Heart Rate: 72 RR Interval: 833 P-R Interval: 232 QRSD Interval: 78 QT Interval: 392 QTC Interval: 430 P Dillon: 9 QRS Dillon: 81 T Wave Dillon: 33 EKG Severity - ABNORMAL ECG - EKG Impression: SINUS ARRHYTHMIA EKG Impression: FIRST DEGREE AV BLOCK Electronically Signed By: Hoa Irvin 04-Apr-2017 12:13:23
[2017-04-04 09:31] VITALS: BP 143/105; PULSE 82; RESP 18; TEMP 98.2
[2017-04-04 13:16] VITALS: O2SAT 75
--- NOTE | 2017-04-04 15:35 | GDS ---
[f rep st] DISCHARGE SUMMARY DISCHARGE DIAGNOSES: Include: 1. Acute on chronic hypoxic respiratory failure secondary to not using his recommended oxygen. 2. Suspected resolving community-acquired pneumonia. 3. History of pulmonary embolism with nonadherence to anticoagulation. 4. Pulmonary hypertension secondary to obstructive sleep apnea, obesity hypoventilation syndrome, a nd pulmonary embolism. 5. Chronic diastolic heart failure. 6. Obesity hypoventilation syndrome. 7. Obstructive sleep apnea. 8. Chronic pain with continuous opioid dependency. 9. Severe obesity. 10. History of neurologic injury in the setting of intubation. 11. Bipolar disorder. HISTORY OF PRESENT ILLNESS: This is a 46-year-old male who left against medical advice from [facility] and was admitted at [facility] with shortness of breath. For details of the patient's initial presentation, please see the history and physical dated 04/03/2017. CONSULTATIONS: None. PROCEDURES: On 04/03/2017, patient had a PA and lateral chest x-ray that showed cardiomegaly with a question of possible pulmonary edema. HOSPITAL COURSE: 1. Acute on chronic hypoxic respiratory failure. Patient was admitted to the hospital after having not used his supplemental oxygen after leaving against medical advice from [facility]. The pat ient was reinitiated on supplemental oxygen with good response. Continued on azithromycin to comple te a course of presumed community-acquired pneumonia as well as continued on his inhaled medications . The patient is at his baseline oxygen saturations on 3 L at the time of his disposition. His bic arb is 32, which is improved from previous, and the rest of his labs within his baseline measurement s. The patient has been provided prescriptions for all of his medications, which he was also writte n for less than 2 weeks ago at disposition and instructed to follow at [facility] for ongoing s cript writing and care. 2. Aggressive violent communication and behavior. Patient was very abusive with staff during this hospital stay. We have informed our social work department as we do feel this patient would be appr opriate for red flagging in our system. 3. Opioid dependency and chronic pain. The patient was provided opioid and benzodiazepine prescrip tions 2 weeks ago and reports that he lost the prescriptions. I reluctantly wrote prescriptions for a few tablets of both alprazolam and oxycodone to help bridge him to an appointment with [facility] next week, again educating him that reporting a lost prescription does not in fact mean he teressa uld be written for additional controlled substances. He needs to establish a healthy relationship w ith a prescribing authority. 4. Chronic hypoxic respiratory failure. Patient was set up with supplemental oxygen concentrator a s well as travel oxygen 2 weeks ago with his last hospitalization. We provided supplemental oxygen for his ride home. He is reporting to go stay with a friend where he can plug in the concentrator, [employer], provided to him at the last disposition. It is unclear how stable a home environment this wi ll be for him. The patient long-term may benefit from placement or alternative social supports to a [facility] with safe housing. 5. Chronic diastolic heart failure. As above, patient was rewritten for his chronic medications. The patient was placed on a low-salt diet during the stay and reverted to screaming and yelling at a ll members of the staff about the diet distinction, angry that he was having his salt limited. We d id change his diet to regular prior to disposition. Again, an example of violent behavior and unnec essary verbal abuse to staff. DISCHARGE MEDICATIONS: Please reference medication reconciliation printed on 04/04/2017. Of note, the patient was provided with prescriptions, month supply, for all of his medications as well as med ications to cover the weekend, allowing him to contact [facility] for A visit on Saturday. FOLLOWUP: Appointment with [facility] next week. Pending studies at the time of this dictation are none. I spent greater than 30 minutes in the planning and coordination of his care; and again, I am discou raged by the aggressive violent behavior of this patient on the floor and his insistence on obtainin g additional narcotics at disposition, fearful that there has been a manipulation of the system and misuse of his care providers. /[id number]/MODL
== END 2017-04-04 14:43 | disposition home or self-care (01) | DRG 193 ==
LOC: F3E 22:53 → OBSVTOIN 23:22
PROVIDERS: ADMIT Family Medicine; ATTEND Hospitalist
DX: J18.9 Pneumonia, unspecified organism (principal); J44.9 Chronic obstructive pulmonary disease, unspecified; J96.21 Acute and chronic respiratory failure with hypoxia; I50.32 Chronic diastolic (congestive) heart failure; G47.33 Obstructive sleep apnea (adult) (pediatric); F31.9 Bipolar disorder, unspecified; G89.29 Other chronic pain; R45.4 Irritability and anger; R45.6 Violent behavior; F11.20 Opioid dependence, uncomplicated; E66.2 Morbid (severe) obesity with alveolar hypoventilation; Z68.43 Body mass index [BMI] 50.0-59.9, adult; Z86.711 Personal history of pulmonary embolism; Z91.19 Patient's noncompliance with other medical treatment and regimen
CPT/HCPCS: 97162-GP; 97166-GO

== ENCOUNTER 2017-08-11 20:40 | Emergency (ER) | payer MEDICAID, OTHER ==
[2017-08-11] MEDS ORDERED: HALOPERIDOL LACT 5 MG/ML INJ IM ONE (21:03)
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
[2017-08-11 21:26] LABS: ABSOLUTE NRBC COUNT 0.03 10^3/uL (0-0.01); ADD DIFF? YES; ADD MORPH? NO; ADD SCAN? NO; ATYPICAL LYMPHOCYTE FLAG 30 (0-99); FRAGMENT RBC FLAG 20 (0-99); HEMATOCRIT 33.2 % (40.0-51.0); HEMOGLOBIN 9.8 g/dL (13.7-17.5); LEFT SHIFT FLG 10 (0-99); LIPEMIA HEMOLYSIS FLAG 70 (0-99); MEAN CELL HEMOGLOBIN CONCENTR. 29.5 g/dL (32.4-36.7); MEAN CELL VOLUME 81.2 fL (81.5-99.8); MEAN PLATELET VOLUME 9.5 fL (8.7-11.7); NRBC-AUTO% 0.2 % (0.0-0.2); PLATELET CLUMPS FLAG 0 (0-99); PLATELET COUNT 502 10^3/uL (150-400); RED BLOOD CELL COUNT 4.09 10^6/uL (4.40-6.38); RED CELL DISTRIBUTION WIDTH 17.4 % (11.5-15.2)
[2017-08-11 21:32] LABS: ANION GAP 13 mEq/L (8-16); CALCIUM 9.6 mg/dL (8.5-10.4); CARBON DIOXIDE 24 mEq/l (22-31); CHLORIDE 101 mEq/L (97-110); ETHANOL SERUM < 10 mg/dL (0-10); GLOMERULAR FILTRATION RATE > 60; GLUCOSE 93 mg/dL (70-100); POTASSIUM 4.5 mEq/L (3.5-5.2); SODIUM 138 mEq/L (134-144)
[2017-08-11 22:08] LABS: HYPOCHROMIA 1+; MICROCYTES 1+; PLATELET ESTIMATE INCREASED (ADEQ); POLYCHROMASIA 1+; SPHEROCYTES 1+
[2017-08-11 22:21] VITALS: BP 175/98; PULSE 83; RESP 16; TEMP 98.4; O2SAT 91
== END 2017-08-11 23:45 | disposition home or self-care (01) ==
LOC: EDUNIT#
DX: F31.9 Bipolar disorder, unspecified (principal); D64.9 Anemia, unspecified; I10 Essential (primary) hypertension; J44.9 Chronic obstructive pulmonary disease, unspecified
CPT/HCPCS: 80305; G0480